=== PATIENT | female | born 1970 | race Caucasian/White ===

== ENCOUNTER 2018-03-20 18:18 | Inpatient (IN) | payer MEDICARE, OTHER ==
[~2018-03-20] VITALS: Ht 177.8 cm; Wt 56.7 kg
[2018-03-20] MEDS ORDERED: MAG HYDROX/AL HYDROX/SIMETH 30 ML UDC PO PRN (19:00)
[2018-03-20] MEDS ORDERED: MAGNESIUM HYDROXIDE 30 ML UDC PO PRN (19:00)
[2018-03-20 19:15] VITALS: BP 86/53
--- NOTE | 2018-03-20 19:15 | NUR ---
GPS ADMISSION NOTE, RECEIVED PATIENT FROM [facility] / [facility]. PATIENT ARRIVED ON THIS UNIT AT 1930 VIA STRETCHER WITH 2 EMT ESCORTS. PATIENT ADMITTED ON A 5150 HOLD FOR DTS. PER HOLD PATIENT WAS BROUGHT IN [facility] BECAUSE THIS PATIENT TOOK A OVERDOSE OF MEDICATION IN A SUICIDE ATTEMPT. PATIENT STATED, " I AM CONSTANTLY HEARING VOICES AND I CAN'T TAKE ANYMORE ". PATIENT ALSO STATES, " I WILL CONTINUE TO ATTEMPT TO KILL MYSELF IF THE VOICES DON'T LEAVE ME ALONE ". PATIENT UNABLE TO CONTRACT FOR SAFETY AT THIS TIME. THE 5150 WAS REVIEWED AND THE DOCUMENTATION IN THE 5150 HOLD APPEARS TO REFLECT THE PRESENTATION OF THE PATIENT. UPON FACE TO FACE ASSESSMENT PATIENT IS CURRENTLY LYING IN BED AWAKE, HAS A COMPLAINT OF RIGHT AND LEFT LEG PAIN AT 4 OUT 10 ON THE PAIN SCALE. PATIENT IS TAKING ORAL PAIN MEDICATION FOR THIS PAIN. PATIENT IS DISPLAYING NO S/S OF APPARENT DISTRESS. PATIENT BREATHING IS UNLABORED WITH EQUAL RISE AND FALL OF THE CHEST. PATIENT IS ALERT AND ORIENTATED X 3 ON ROOM AIR. PATIENT ASSISTED WITH TURING AND REPOSITIONING Q2HR AND PRN FOR COMFORT AND CIRCULATION. PATIENT HAS NO NEEDS AT THIS TIME. PATIENT IS NOTED TO BEING WITHDRAWN, DEPRESSED, DISHEVELED, DISORGANIZED, COOPERATIVE, AND NEEDS REDIRECTION. PATIENT IS UNDER THE PSYCHIATRIC CARE OF DR. MOE AND THE MEDICAL CARE OF DR RAMSEY. PATIENT BELONGINGS WERE INVENTORIED AND CHECKED FOR CONTRABAND. ALL CONTRABAND REMOVED AND STORED IN PATIENT HALLWAY LOCKER. PATIENT ADVANCED DIRECTIVES PREFERENCE, IMMUNIZATIONS QUESTIONER, NECESSARY PAPERWORK COMPLETED. PATIENT REFUSED SKIN ASSESSMENT AT THIS TIME BUT SAID SHE WOULD DO IT IN THE AM. PATIENT ORIENTATED TO ROOM, FLOOR, AND STAFF WITH ALL QUESTIONS ANSWERED. PATIENT EDUCATED ON THE USE OF THE CALL JENKINS. PATIENT BED SIDE RAILS ARE UP X 2 FOR SAFETY. PATIENT BED IS LOCKED, LOW AND I WILL CONTINUE TO MONITOR THIS PATIENT Q 15 MIN WITH THE HELP OF STAFF TO MAINTAIN SAFETY.
[2018-03-20] MEDS: ACETAMINOPHEN 325 MG TABLET PO PRN (19:38)
--- NOTE | 2018-03-20 19:38 | NUR ---
GS RN NOTE, PATIENT HAS A COMPLAINT OF PAIN AT 4 OUT 10 ON THE PAIN SCALE REQUESTING TYLENOL AT THIS TIME. PATIENT VITAL SIGNS ARE STABLE. GAVE TYLENOL 650 MG PO Q6HR PRN ORDERED. WILL REASSESS PAIN AND I WILL CONTINUE TO MONITOR THIS PATIENT.
[2018-03-20 20:01] VITALS: BP 83/53
[2018-03-20] MEDS ORDERED: PARO10TA86 PO (20:20)
[2018-03-20] MEDS ORDERED: CLIN300C11 PO (20:20)
[2018-03-20] MEDS ORDERED: OXYC-133 PO (20:22)
[2018-03-20] MEDS ORDERED: LEVO25TA7 PO (20:25)
[2018-03-20] MEDS ORDERED: AMIT25TA9 PO (20:26)
[2018-03-20] MEDS ORDERED: OLAN5TAB3 PO (20:27)
[2018-03-20] MEDS ORDERED: PANT40TA2 PO (20:28)
[2018-03-20] MEDS ORDERED: ALBU2.5V11 NEB (20:31)
[2018-03-20] MEDS ORDERED: BECL8.7A6 IH (20:34)
[2018-03-20] MEDS: TEMAZEPAM 7.5 MG CAPSULE PO PRN (22:51)
--- NOTE | 2018-03-20 22:51 | NUR ---
GPS RN NOTE, PATIENT HAS A COMPLAINT OF NOT BEING ABLE TO SLEEP AND IS REQUESTING A SLEEPING AID AT THIS TIME. PATIENT VITAL SIGNS ARE STABLE. GAVE RESTORIL 7.5 MG PO HS ORDERED. WILL REASSESS FOR INSOMNIA AND I WILL CONTINUE TO MONITOR THIS PATIENT.
[2018-03-21] MEDS ORDERED: ALBUTEROL FS 2.5 MG/3 ML VIAL.NEB NEB PRN (00:30)
[2018-03-21] MEDS ORDERED: SENN-167 PO (00:44)
[2018-03-21] MEDS ORDERED: ENOX40DI SUBCUT (00:44)
[2018-03-21] MEDS ORDERED: CALC1TAB90 PO (00:48)
[2018-03-21] MEDS ORDERED: CLON0.1T PO (00:50)
[2018-03-21] MEDS ORDERED: IPRA0.2S49 NEB (00:53)
[2018-03-21] MEDS: HYDROCODONE/APAP 10/325MG 1 EA TABLET PO PRN (05:07)
--- NOTE | 2018-03-21 05:07 | NUR ---
GPS RN NOTE, PATIENT HAS A COMPLAINT OF RIGHT AND LEFT ANKLE PAIN AT 8 OUT 10 ON THE PAIN SCALE. PATIENT VITAL SIGNS ARE STABLE. GAVE NORCO 10-325 PO Q6HR PRN ORDERED. WILL REASSESS PAIN AND I WILL CONTINUE TO MONITOR THIS PATIENT.
[2018-03-21 08:00] VITALS: BP 102/55
[2018-03-21] MEDS: PANTOPRAZOLE 40 MG TABLET.DR PO SCH (08:24)
[2018-03-21] MEDS: NICOTINE PATCH (14MG) 14 MG PATCH.TD24 TD SCH (08:24)
[2018-03-21] MEDS: LEVOTHYROXINE SODIUM 25 MCG TABLET PO SCH (08:24)
[2018-03-21 08:44] LABS: ALBUMIN 1.9 g/dL (3.4-5.0); BILIRUBIN,TOTAL 0.3 mg/dL (0.2-1.0); CREATININE 0.7 mg/dL (0.6-1.3); POTASSIUM 4.6 mmol/L (3.5-5.1); TOTAL PROTEIN, SERUM 6.9 g/dL (6.4-8.2)
[2018-03-21] MEDS ORDERED: QVAR PO PRN (09:00)
[2018-03-21] MEDS: ACETAMINOPHEN 325 MG TABLET PO PRN ×2 (11:15→15:36)
--- NOTE | 2018-03-21 11:15 | NUR ---
[id number]: GAVE TYLENOL 650 MG PO DUE TO BILATERAL LOWER EXTREMITIES UPON PT REQUEST AND WILL CONTINUE TO MONITOR FOR EFFECTIVENESS OF MEDICATION.
--- NOTE | 2018-03-21 11:16 | NUR ---
WOUND CARE CONSULT: PT PRESENTS WITH FIXATOR DEVICE TO RT ANKLE/LOWER LEG AND WOUNDS TO LEFT FOOT/ANKLE AREA, PRESENT ON ADMISSION. RECOMMENDATIONS MADE FOR SKIN PROTECTION AND WOUND CARE. DISCUSSED WITH NURSING STAFF. RECOMMEND SURGICAL CONSULT. PT INDEPENDENT WITH BED MOBILITY AND CONTINENT. WILL SEE PRN. BE IN AGREEMENT WITH PLAN OF CARE. Addendum: 03/21/18 at 1118 by MAX ALFORD WNDNU Amended: Links added.
[2018-03-21] MEDS ORDERED: ALBUTEROL FS 2.5 MG/0.5 ML VIAL.NEB NEB PRN (12:00)
[2018-03-21] MEDS: CLINDAMYCIN HCL 150 MG CAPSULE PO SCH ×2 (12:29→16:13)
[2018-03-21] MEDS: oxyCODONE/APAP (5/325 MG) 1 UDTAB TABLET PO SCH ×3 (12:29→21:11)
--- NOTE | 2018-03-21 14:43 | NUR ---
[id number]: PT IS CONCERN ABOUT HER BILATERAL LOWER EXTREMITIES, NOTIFIED DR. MOE ABOUT PT'S CONCERN. DR. MOE REQUESTED A ORTHO CONSULT. NOTIFIED DR. RAMSEY ABOUT DR. MOE REQUEST AND TO MEDICAL CLEAR PT STAY IN THE [facility] UNIT. PENDING RETURN PHONE CALL.
--- NOTE | 2018-03-21 15:36 | NUR ---
[id number]: GAVE TYLENOL 650 MG PO DUE TO BILATERAL LOWER EXTREMITIES UPON PT REQUEST AND WILL CONTINUE TO MONITOR FOR EFFECTIVENESS OF MEDICATION.
[2018-03-21 16:00] VITALS: BP 95/60
[2018-03-21 20:30] VITALS: BP 97/70
[2018-03-21] MEDS: OLANZAPINE 5 MG TABLET PO SCH (21:11)
[2018-03-21] MEDS ORDERED: AMITRIPTYLINE HCL 25 MG TABLET PO SCH (22:00)
[2018-03-21 23:00] VITALS: BP 110/68
[2018-03-21] MEDS: LORAZEPAM 0.5 MG TABLET PO PRN (23:12)
[2018-03-22] MEDS: oxyCODONE/APAP (5/325 MG) 1 UDTAB TABLET PO SCH ×3 (05:00→20:37)
--- NOTE | 2018-03-22 05:12 | NUR ---
GPS RN NOTES: PT.REFUSED PERCOCET5/325 AT 5 AM , ENCOURAGED FOR MEDS ,PT. STILL REFUSED ,WILL CONTINUE TO ENCOURAGE TO COMPLY WITH MD REGIMEN.
[2018-03-22] MEDS: ACETAMINOPHEN 325 MG TABLET PO PRN ×3 (05:45→20:08)
[2018-03-22 08:00] VITALS: BP 97/68
[2018-03-22] MEDS: LEVOTHYROXINE SODIUM 25 MCG TABLET PO SCH (08:07)
[2018-03-22] MEDS: NICOTINE PATCH (14MG) 14 MG PATCH.TD24 TD SCH ×2 (08:07→08:12)
[2018-03-22] MEDS: OLANZAPINE 5 MG TABLET PO SCH ×2 (08:07→21:06)
[2018-03-22] MEDS: CLINDAMYCIN HCL 150 MG CAPSULE PO SCH ×3 (08:07→16:38)
[2018-03-22] MEDS: ESCITALOPRAM OXALATE (10 MG) 10 MG TABLET PO SCH (08:07)
[2018-03-22] MEDS: PANTOPRAZOLE 40 MG TABLET.DR PO SCH (08:07)
[2018-03-22] MEDS: ENOXAPARIN SODIUM 40 MG/0.4 ML DISP.SYRIN SQ SCH (08:09)
--- NOTE | 2018-03-22 11:58 | NUR ---
GPS/RN-NOTES NOTED PATIENT CRYING STATED" I JUST WANT TO GO HOME". EXPLAIN PATIENT ON HOLD AND WAIT FOR THE PSYCHIATRIST. OFFERED ATIVAN BUT PATIENT REFUSED.
--- NOTE | 2018-03-22 13:22 | NUR ---
INITIAL DISCHARGE NOTE: Pt wants to be discharged back home to [address] [facility] [address]. However, pt stated that she does not know if she still has a home due to people telling her she no longer had a home. ALEIDA spoke with pts Christophe [phone] who stated pt does have a home and can return as soon as pt is ready for discharge. ALEIDA will help form a safe and proper discharge in collaboration with .
--- NOTE | 2018-03-22 13:55 | NUR ---
GPS/RN-NOTES PATIENT REFUSED PERCOCET AND ATB . EXPLAINED RISK AND BENEFITS BUT PATIENT GETS ANGRY AT THE HAND SHAKER. OFFERED X3.
--- NOTE | 2018-03-22 15:40 | NUR ---
SW attempted to contact pts Christophe [phone] to discuss discharge plan per MD. ALEIDA left voicemail for call back.
[2018-03-22 16:00] VITALS: BP 101/73
--- NOTE | 2018-03-22 16:57 | NUR ---
GPS/RN-NOTES NO URINE COLLECTED FOR TEST AT THIS TIME.EVERY TIME PATIENT URINATE SHE WILL ACCIDENTALLY HAD BM. WILL ENDORSED TO THE INCOMING NURSE FOR CONTINUITY OF CARE AND FOR URINE COLLECTION.
--- NOTE | 2018-03-22 17:22 | NUR ---
GPS/RN-NOTES PATIENT C/O LEFT LEG AND REQUESTING TYLENOL ONLY. TYLENOL 650MG P.O GIVEN PRN ORDER. WILL ENDORSE TO INCOMING CHARGE NURSE FOR CONTINUITY OF CARE. PATIENT ON 1:1 MONITORING FOR SAFETY.
--- NOTE | 2018-03-22 19:45 | NUR ---
RN NOTES GPS RN NOTE: RECEIVED PATIENT AWAKE AND LYING IN BED WITH 1:1 IN PT ROOM. ALERT AND ORIENTED X 3. COMPLAINED OF PAIN IN LEFT AND RIGHT LEG 6/10. REQUESTED TYLENOL PRN. PATIENT VERBALIZED SHE DID NOT WANT TO TAKE HER SCHEDULED PERCOCET BECAUSE DID NOT WANT TO BE "OUT OF IT". PATIENT DISPLAYING NO S/S OF APPARENT DISTRESS AT THIS TIME. PATIENT DENIES SUICIDE IDEATIONS AND HOMICIDAL IDEATIONS AT THIS TIME. PATIENT ENCOURAGED TO VERBALZE FEELINGS AND CONCERNS. WILL CONTINUE TO MONITOR AND MAINTAIN AND MAINTAIN SAFETY.
[2018-03-22 20:33] VITALS: BP 109/68
[2018-03-22] MEDS: AMITRIPTYLINE HCL 25 MG TABLET PO SCH (21:08)
--- NOTE | 2018-03-22 22:00 | NUR ---
RN NOTES. RECEIVED LETTER FROM PATIENT REGARDING PATIENT WANTED TO BE ALLOWED TO LEAVE SOON TO NOT MISS A FAMILY MEMBER GRADUATION. LETTER PUT ON CHART FOR PHYSICIAN TO REVIEW. DRESSING ON LEFT LEG CHANGED PER ORDER. NO SIGNS OF ANY NEW COMPLICATIONS. LEFT BOOT OF PER PATIENT REQUEST FOR SLEEP..NO SIGNS OF DISTRESS NOTED AT THIS TIME. PATIENT REMAINS WITH 1:1 SITTER.
[2018-03-22] MEDS: HYDROCODONE/APAP 10/325MG 1 EA TABLET PO PRN (23:30)
[2018-03-23] MEDS: TEMAZEPAM 7.5 MG CAPSULE PO PRN (00:26)
--- NOTE | 2018-03-23 04:15 | NUR ---
GPS NOTE: PATIENT WOKE ANGRY ABOUT BEING IN HOSPITAL. PATIENT REQUESTED AND WAS GIVEN NEW COPIES OF ADVISEMENTS AGAIN BECAUSE SHE HAD TORN UP THE FIRST SET GIVEN TO HER. PATIENT COMPLAINS OF HEARING FAMILY MEMBERS TALKING TO HER ABOUT THEIR PROBLEMS AND BEING UNABLE TO SLEEP AT THIS TIME. 1 : 1 TIME TO ALLOW PATIENT TO VENT EMOTIONS AND OFFER REALITY ORIENTATION, SUPPORT, AND ENCOURAGEMENT. DENIES SI/ HI. PATIENT WITH 1 : 1 SITTER FOR SAFETY AND WILL CONTINUE TO MONITOR.
[2018-03-23] MEDS: oxyCODONE/APAP (5/325 MG) 1 UDTAB TABLET PO SCH ×3 (05:00→20:33)
[2018-03-23] MEDS: ESCITALOPRAM OXALATE (10 MG) 10 MG TABLET PO SCH (08:15)
[2018-03-23] MEDS: CLINDAMYCIN HCL 150 MG CAPSULE PO SCH ×3 (08:15→17:24)
[2018-03-23] MEDS: PANTOPRAZOLE 40 MG TABLET.DR PO SCH (08:15)
[2018-03-23] MEDS: LEVOTHYROXINE SODIUM 25 MCG TABLET PO SCH (08:15)
[2018-03-23] MEDS: OLANZAPINE 5 MG TABLET PO SCH ×2 (08:15→20:35)
[2018-03-23] MEDS: ENOXAPARIN SODIUM 40 MG/0.4 ML DISP.SYRIN SQ SCH (08:18)
[2018-03-23] MEDS: NICOTINE PATCH (14MG) 14 MG PATCH.TD24 TD SCH (08:22)
[2018-03-23] MEDS: ACETAMINOPHEN 325 MG TABLET PO PRN ×2 (08:32→17:24)
[2018-03-23 08:40] VITALS: BP 99/65
--- NOTE | 2018-03-23 08:45 | NUR ---
GPS/RN-NOTES PATIENT C/O LEFT LEG AND REQUESTING FOR TYLENOL. TYLENOL 650MG P.O GIVEN PRN ORDER. WILL CONT. MONITORING .
[2018-03-23] MEDS: HYDROGEL DRESSING 90 GM TUBE TP SCH (11:06)
[2018-03-23 16:00] VITALS: BP 99/72
[2018-03-23] MEDS: LORAZEPAM 0.5 MG TABLET PO PRN (20:35)
[2018-03-23 20:40] VITALS: BP 106/63
[2018-03-23] MEDS: AMITRIPTYLINE HCL 25 MG TABLET PO SCH (21:04)
--- NOTE | 2018-03-23 23:05 | NUR ---
GPS RN NOTE: PT ALERT AND ORIENTED 2-3. MED COMPLIANT. REFUSING SCHEDULED PERCOCET PREFERS TYLENOL PRN FOR LEG PAIN. DRESSING TO LEFT ANKLE DRY AND INTACT. PT TOOK OFF BOOT TO TRY TO SLEEP. PT LABILE, ATTENTION SEEKING, IRRITABLE, CONFUSED AT SITUATION AT TIMES. DENIES PAIN, SI OR HI. C/O INSOMNIA BUT REFUSES PRN. DENIES SI OR HI. Q 15 CHECKS, REALITY ORIENTATION AND SUPPORT NEEDED. 1 :1 PRESENT. BED RAILS UP X 2 AND CALL JENKINS WITHIN REACH. WILL CONTINUE TO MONITOR FOR SAFETY AND BEHAVIOR.
[2018-03-24] MEDS: ACETAMINOPHEN 325 MG TABLET PO PRN ×2 (01:17→12:52)
--- NOTE | 2018-03-24 01:19 | NUR ---
GPS RN NOTE: PATIENT SLEPT FOR TWO HOURS WOKE C/O MILD PAIN LEGS AND REQUESTED TYLENOL PRN. PATIENT STATED SHE THINKS SHE WILL BE ABLE TO RETURN TO SLEEP WITHOUT A PRN FOR SLEEP AT THIS TIME.
[2018-03-24] MEDS: oxyCODONE/APAP (5/325 MG) 1 UDTAB TABLET PO SCH ×3 (05:00→21:00)
[2018-03-24 08:00] VITALS: BP 100/66
[2018-03-24] MEDS: NICOTINE PATCH (14MG) 14 MG PATCH.TD24 TD SCH (08:26)
[2018-03-24] MEDS: ENOXAPARIN SODIUM 40 MG/0.4 ML DISP.SYRIN SQ SCH (08:29)
[2018-03-24] MEDS: ESCITALOPRAM OXALATE (10 MG) 10 MG TABLET PO SCH (08:30)
[2018-03-24] MEDS: CLINDAMYCIN HCL 150 MG CAPSULE PO SCH ×3 (08:30→16:44)
[2018-03-24] MEDS: LEVOTHYROXINE SODIUM 25 MCG TABLET PO SCH (08:30)
[2018-03-24] MEDS: PANTOPRAZOLE 40 MG TABLET.DR PO SCH (08:30)
[2018-03-24] MEDS: HYDROGEL DRESSING 90 GM TUBE TP SCH (08:31)
[2018-03-24] MEDS: OLANZAPINE 5 MG TABLET PO SCH ×3 (08:44→21:44)
--- NOTE | 2018-03-24 08:44 | NUR ---
GPS/RN PT REFUSED TO TAKE SCHEDULED ZYPREXA PO. STATES THAT SHE NEED TO DISCUSS THIS MEDICATION WITH PSYCHIATRIST.
--- NOTE | 2018-03-24 15:24 | NUR ---
GPS/RN PT TOOK ZYPREXA 5MG PO FOLLOWING DISCUSSION WITH DR MOE.
[2018-03-24 16:01] VITALS: BP 96/58
--- NOTE | 2018-03-24 16:04 | NUR ---
ALEIDA contacted pts Christophe [phone] to discuss discharge plan per MD. ALEIDA informed pts that MD is recommending pt be discharged to a SNF instead of home due to pts previous 2 suicide attempts after being released from hospital. SW also informed pts that if pt is taken home, will have to sign a 24 hour care safety plan upon discharge. Pts understood and asked SW to give him time to think about options and decision.
[2018-03-24 20:15] VITALS: BP 115/71
--- NOTE | 2018-03-24 20:15 | NUR ---
GPS RN NOTE: RECEIVED PATIENT AWAKE AND IN BED WITH AT BEDSIDE VISITING, NO S/S OR COMPLAINTS OF PAIN AT THIS TIME. PATIENT DISPLAYING NO S/S OF APPARENT DISTRESS AT THIS TIME. PATIENT BREATHING IS UNLABORED WITH EQUAL RISE AND FALL OF THE CHEST. PATIENT ALERT AND ORIENTED X 3 WITH A SPO2 97%. PATIENT IS WITH 1:1 SITTER BECAUSE OF EXTERNAL FIXATION ON RIGHT LEG AND BOOT ON LEFT. PATIENT CAN AMBULATE TO BATHROOM WITH ASSISTANCE. PATIENT ENCOURAGED TO CONTINUE TO MOVE EXTREMITIES. PATIENT STATES WILL BE MED COMPLIANT, SHE IS LESS DISORGANIZED, LESS HYPERVERBAL, AND MORE COOPERATIVE THAN LAST NIGHT. NEEDS REORIENTATION. PATIENT DENIES SUICIDE IDEATIONS AND HOMICIDAL IDEATIONS AT THIS TIME. PATIENT ASSISTED WITH TURNING AND REPOSITIONING PRN FOR COMFORT AND CIRCULATION. PATIENT HAS NO NEEDS AT THIS TIME. PATIENT EDUCATED ON THE USE OF THE CALL JENKINS. PATIENT BED SIDE RAILS UP X2 FOR SAFETY, BED IS LOCKED AND LOW WILL CONTINUE TO MONITOR AND MAINTAIN AND MAINTAIN SAFETY.
[2018-03-24 20:17] VITALS: BP 93/62
[2018-03-24] MEDS: HYDROCODONE/APAP 10/325MG 1 EA TABLET PO PRN (21:45)
[2018-03-24] MEDS: AMITRIPTYLINE HCL 25 MG TABLET PO SCH (21:50)
[2018-03-24] MEDS: LORAZEPAM 0.5 MG TABLET PO PRN (22:08)
--- NOTE | 2018-03-24 22:10 | NUR ---
GPS RN NOTE: PT SPENT TIME IN CHAIR IN ROOM WITH 1:1 PLAYING Thermalin Diabetes AND INTERACTS APPROPRIATELY WHEN ENGAGED. MED COMPLIANT. PATIENT ENDORSED AUDITORY HALLUCINATIONS WITH VOICES THAT ARE CURSING WITHOUT COMMAND. SHE IS AWARE THEY ARE NOT REAL AND IS TRYING TO IGNORE THEM BUT HER ANXIETY WAS INCREASED AND SHE REQUESTED ATIVAN PRN BECAUSE SHE COULD NOT RELAX. ALSO C/O 5/10 ACHE PAIN IN BILATERAL FEET AND ANKLES AND REQUESTED AND RECEIVED NORCO PRN. DENIES SI/HI. WILL CONTINUE TO PROVIDE REALITY ORIENTATION AND SUPPORT NEEDED.
[2018-03-25] MEDS: oxyCODONE/APAP (5/325 MG) 1 UDTAB TABLET PO SCH ×3 (04:47→20:50)
[2018-03-25] MEDS: HYDROCODONE/APAP 10/325MG 1 EA TABLET PO PRN (05:30)
[2018-03-25 08:00] VITALS: BP 113/68
[2018-03-25] MEDS: CLINDAMYCIN HCL 150 MG CAPSULE PO SCH ×3 (08:36→17:07)
[2018-03-25] MEDS: ENOXAPARIN SODIUM 40 MG/0.4 ML DISP.SYRIN SQ SCH (08:37)
[2018-03-25] MEDS: LEVOTHYROXINE SODIUM 25 MCG TABLET PO SCH (08:37)
[2018-03-25] MEDS: PANTOPRAZOLE 40 MG TABLET.DR PO SCH (08:37)
[2018-03-25] MEDS: ESCITALOPRAM OXALATE (10 MG) 10 MG TABLET PO SCH (08:37)
[2018-03-25] MEDS: OLANZAPINE 5 MG TABLET PO SCH ×2 (08:37→20:51)
[2018-03-25] MEDS: NICOTINE PATCH (14MG) 14 MG PATCH.TD24 TD SCH (08:38)
[2018-03-25] MEDS: HYDROGEL DRESSING 90 GM TUBE TP SCH (08:38)
[2018-03-25] MEDS: CYANOCOBALAMIN 500 MCG TABLET PO SCH (12:54)
[2018-03-25] MEDS: ACETAMINOPHEN 325 MG TABLET PO PRN (15:25)
[2018-03-25 16:00] VITALS: BP 97/62
[2018-03-25 20:56] VITALS: BP 101/67
--- NOTE | 2018-03-25 21:00 | NUR ---
03/25/18 AT 2100, PATIENT REFUSED OXYCODONE 5/325 MG TAB PO, STATED, " NO"
[2018-03-25] MEDS: AMITRIPTYLINE HCL 25 MG TABLET PO SCH (21:39)
--- NOTE | 2018-03-25 23:29 | NUR ---
PATIENT STILL AWAKE, OFFERED HER SLEEPING PILL, SHE STATED," I'M OKAY FOR NOW, CAN I ASK FOR THE MEDICATION IF I NEED IT?". WILL CONTINUE TO MONITOR Q 15 MINS. TO MAINTAIN SAFETY.
[2018-03-26] MEDS: oxyCODONE/APAP (5/325 MG) 1 UDTAB TABLET PO SCH ×3 (05:00→21:00)
--- NOTE | 2018-03-26 05:20 | NUR ---
03/26/18 @ 0500, PATIENT REFUSED OXYCODONE 5/325 MG TAB PO. OFFERED 2X, STILL REFUSED.
[2018-03-26 08:00] VITALS: BP 100/65
[2018-03-26] MEDS: LEVOTHYROXINE SODIUM 25 MCG TABLET PO SCH (08:33)
[2018-03-26] MEDS: OLANZAPINE 5 MG TABLET PO SCH ×2 (08:34→21:36)
[2018-03-26] MEDS: ACETAMINOPHEN 325 MG TABLET PO PRN ×3 (08:34→23:14)
[2018-03-26] MEDS: CLINDAMYCIN HCL 150 MG CAPSULE PO SCH ×3 (08:35→16:45)
[2018-03-26] MEDS: PANTOPRAZOLE 40 MG TABLET.DR PO SCH (08:35)
[2018-03-26] MEDS: HYDROGEL DRESSING 90 GM TUBE TP SCH (08:35)
[2018-03-26] MEDS: ESCITALOPRAM OXALATE (10 MG) 10 MG TABLET PO SCH (08:35)
[2018-03-26] MEDS: CYANOCOBALAMIN 500 MCG TABLET PO SCH (08:35)
[2018-03-26] MEDS: NICOTINE PATCH (14MG) 14 MG PATCH.TD24 TD SCH (08:35)
[2018-03-26] MEDS: ENOXAPARIN SODIUM 40 MG/0.4 ML DISP.SYRIN SQ SCH (08:47)
[2018-03-26 16:21] VITALS: BP 102/62
[2018-03-26 20:09] VITALS: BP 99/62
[2018-03-26] MEDS: HYDROCODONE/APAP 10/325MG 1 EA TABLET PO PRN (21:37)
--- NOTE | 2018-03-26 21:37 | NUR ---
RN NOTES PT REFUSED FOR SCHEDULED PERCOCET DUE AT THIS TIME, INSTEAD PT WANTS TO TAKE NORCO FOR PAIN. NORCO 10/325 MG TAB GIVEN PO FOR 6/10 PAIN AND TOLERATED WELL. WILL CONTINUE TO MONITOR PT.
[2018-03-26] MEDS: AMITRIPTYLINE HCL 25 MG TABLET PO SCH (22:34)
[2018-03-26] MEDS ORDERED: PROMETHAZINE HCL 25 MG TABLET ONE (22:44)
--- NOTE | 2018-03-26 22:44 | NUR ---
RN NOTES PT VOMITED, SMALL IN AMOUNT OF PREVIOUSLY TAKEN FOOD. PER PT SHE'S TAKING PHENERGAN FOR NAUSEA AND VOMITING AT HOME. DR. LIMA WAS PAGED NOTIFIED WITH ORDER OF PHENERGAN 25 MG TAB PO Q8H PRN FOR N/V. NOTED AND CARRIED OUT.
[2018-03-26] MEDS: PROMETHAZINE HCL 25 MG TABLET PO PRN (23:02)
--- NOTE | 2018-03-26 23:02 | NUR ---
RN NOTES PHENERGAN 25 MG TAB GIVEN PO FOR NAUSEA AND VOMITING, TOLERATED WELL. WILL CONTINUE TO MONITOR PT.
[2018-03-27] MEDS: TEMAZEPAM 7.5 MG CAPSULE PO PRN (01:58)
[2018-03-27] MEDS: oxyCODONE/APAP (5/325 MG) 1 UDTAB TABLET PO SCH ×3 (05:00→21:00)
[2018-03-27 08:00] VITALS: BP 106/69
[2018-03-27] MEDS: CLINDAMYCIN HCL 150 MG CAPSULE PO SCH ×3 (08:24→17:06)
[2018-03-27] MEDS: OLANZAPINE 5 MG TABLET PO SCH ×2 (08:24→21:39)
[2018-03-27] MEDS: PANTOPRAZOLE 40 MG TABLET.DR PO SCH (08:25)
[2018-03-27] MEDS: ESCITALOPRAM OXALATE (10 MG) 10 MG TABLET PO SCH (08:25)
[2018-03-27] MEDS: NICOTINE PATCH (14MG) 14 MG PATCH.TD24 TD SCH (08:25)
[2018-03-27] MEDS: CYANOCOBALAMIN 500 MCG TABLET PO SCH (08:25)
[2018-03-27] MEDS: LEVOTHYROXINE SODIUM 25 MCG TABLET PO SCH (08:25)
[2018-03-27] MEDS: ENOXAPARIN SODIUM 40 MG/0.4 ML DISP.SYRIN SQ SCH (08:28)
[2018-03-27] MEDS: HYDROGEL DRESSING 90 GM TUBE TP SCH (12:21)
--- NOTE | 2018-03-27 15:11 | NUR ---
gps vinyl cutter: glass novelty maker f/u dr. roberson at bedside and tx done to left ankle/foot wound with order for p.t. eval for walker ambulation. order read back and carried out and acknowledged.
--- NOTE | 2018-03-27 15:23 | NUR ---
GPS LABORATORY TESTER: PSYCH F/U SEEN BY DR. MOE AT THIS TIME.
--- NOTE | 2018-03-27 15:48 | NUR ---
SW contacted pts Christophe [phone] to inform him that pt is ready for discharge on Tuesday03/29/18. SW asked if pt was connected with resources and he stated that pt is received IHSS and he cares for her at home. Pt encouraged to schedule a follow hemant with pts psychiatrist.
[2018-03-27 16:00] VITALS: BP 95/62
--- NOTE | 2018-03-27 19:30 | NUR ---
GPS RN NOTE, RECEIVED PATIENT AWAKE AND IN BED, NO S/S OR COMPLAINTS OF PAIN AT THIS TIME. PATIENT DISPLAYING NO S/S OF APPARENT DISTRESS AT THIS TIME. PATIENT BREATHING IS UNLABORED WITH EQUAL RISE AND FALL OF THE CHEST. PATIENT HAS A ONE TO ONE FOR FALL RISK. PATIENT ALERT AND ORIENTED X 3 WITH A SPO2 95%. PATIENT IS MED COMPLIANT, DISORGANIZED, DEPRESSED, PARANOID, ISOLATIVE, COOPERATIVE, NEEDS REORIENTATION. PATIENT DENIES SUICIDE IDEATIONS AND HOMICIDAL IDEATIONS AT THIS TIME. PATIENT ASSISTED WITH TURNING AND REPOSITIONING Q2HR AND PRN FOR COMFORT AND CIRCULATION. PATIENT HAS NO NEEDS AT THIS TIME. PATIENT EDUCATED ON THE USE OF THE CALL JENKINS. PATIENT BED SIDE RAILS UP X2 FOR SAFETY, BED IS LOCKED AND LOW WILL CONTINUE TO MONITOR AND MAINTAIN AND MAINTAIN SAFETY.
[2018-03-27 19:45] VITALS: BP 102/68
--- NOTE | 2018-03-27 21:31 | NUR ---
GPS RN NOTE, PATIENT REFUSED PERCOCET 2UD TABS PO Q8HR PRN. OFFERED THREE TIMES AND STILL PATIENT REFUSED STATING, " I JUST WANT TYLENOL ". EDUCATE THE PATIENT ON THE RISKS AND BENEFITS OF TAKING AND REFUSING AFOREMENTIONED MEDICATION. WILL CONTINUE TO MONITOR THIS PATIENT.
[2018-03-27] MEDS: AMITRIPTYLINE HCL 25 MG TABLET PO SCH (21:39)
[2018-03-27] MEDS: ACETAMINOPHEN 325 MG TABLET PO PRN (21:39)
--- NOTE | 2018-03-27 21:39 | NUR ---
GPS RN NOTE, GPS RN NOTE PATIENT HAS A COMPLAINT OF LEFT ANKLE PAIN AT 3 OUT 10 ON THE PAIN SCALE AND IS REQUESTING TYLENOL AT THIS TIME. PATIENT VITAL SIGNS ARE STABLE. GAVE TYLENOL 650 MG PO Q6HR PRN ORDERED. WILL CONTINUE TO MONITOR THIS PATIENT.
[2018-03-28] MEDS: PROMETHAZINE HCL 25 MG TABLET PO PRN (04:08)
--- NOTE | 2018-03-28 04:08 | NUR ---
GPS RN NOTE, PATIENT HAS A COMPLAINT OF FEELING NAUSEATED AND IS REQUESTING PHENERGAN AT THIS TIME. PATIENT VITAL SIGNS ARE STABLE. GAVE PHENERGAN 25 MG PO Q8HR PRN ORDERED. WILL REASSESS FOR NAUSEA AND I WILL CONTINUE TO MONITOR THIS PATIENT.
[2018-03-28] MEDS: oxyCODONE/APAP (5/325 MG) 1 UDTAB TABLET PO SCH ×3 (05:00→21:00)
[2018-03-28] MEDS: ACETAMINOPHEN 325 MG TABLET PO PRN (05:04)
[2018-03-28] MEDS: LEVOTHYROXINE SODIUM 25 MCG TABLET PO SCH (07:30)
[2018-03-28] MEDS: OLANZAPINE 5 MG TABLET PO SCH ×2 (09:11→21:49)
[2018-03-28] MEDS: CLINDAMYCIN HCL 150 MG CAPSULE PO SCH ×3 (09:11→17:39)
[2018-03-28 09:13] VITALS: BP 128/69
[2018-03-28] MEDS: NICOTINE PATCH (14MG) 14 MG PATCH.TD24 TD SCH (09:14)
[2018-03-28] MEDS: CYANOCOBALAMIN 500 MCG TABLET PO SCH (09:14)
[2018-03-28] MEDS: ENOXAPARIN SODIUM 40 MG/0.4 ML DISP.SYRIN SQ SCH (09:15)
[2018-03-28] MEDS: ESCITALOPRAM OXALATE (10 MG) 10 MG TABLET PO SCH (09:16)
[2018-03-28] MEDS: HYDROGEL DRESSING 90 GM TUBE TP SCH (09:16)
[2018-03-28] MEDS: PANTOPRAZOLE 40 MG TABLET.DR PO SCH (09:17)
--- NOTE | 2018-03-28 15:25 | NUR ---
ALEIDA contacted [facility] [phone] to confirm pts intake appointment with Ifeoma Zambrano. [facility] clerk informed ALEIDA that pt did not have an appointment pending and needed to be re-referred to [place] program by ALEIDA. ALEIDA faxed referral packet to [place] intake and assessment for ongoing mental health treatment at [phone].
[2018-03-28 16:00] VITALS: BP 108/64
[2018-03-28 20:46] VITALS: BP 108/57
--- NOTE | 2018-03-28 21:32 | NUR ---
PERCOCET 5/325 MG TAB REFUSED TONIGHT, DUE AT 2100.
--- NOTE | 2018-03-28 21:33 | NUR ---
PATIENT C/O PAIN ON HER LEFT LEG, OFFERED TYLENOL 650 MG TAB, PATIENT STATED THAT IT DOES NOT WORK FOR HER. PATIENT IS REQUESTING A DOCTOR TO SEE HER, CHARGE NURSE TO TALK TO HER. PAGED TRACK GRINDER OPERATOR FRANCINE, CHARGE NURSE MADE AWARE OF HER REQUESTS.
--- NOTE | 2018-03-28 21:37 | NUR ---
PAGED AND SPOKE TO CHECK SCALER FRANCINE, RELAYED PATIENT'S CONCERNS, RE: PAIN MEDS MOTRIN, AND PATIENT'S REQUEST TO SEE HER. FRANCINE STATED THAT, HE WILL COME WHENEVER HE IS AVAILABLE.
[2018-03-28] MEDS: AMITRIPTYLINE HCL 25 MG TABLET PO SCH (21:49)
[2018-03-28] MEDS: IBUPROFEN 200 MG TABLET PO PRN (23:49)
--- NOTE | 2018-03-28 23:49 | NUR ---
IBUPROFEN 200 MG TAB PO GIVEN FOR PAIN LEFT LOWER LEG
[2018-03-29] MEDS: PROMETHAZINE HCL 25 MG TABLET PO PRN (03:21)
--- NOTE | 2018-03-29 03:22 | NUR ---
C/O NAUSEA, PROMETHAZINE 25 MG TAB PO GIVEN.
[2018-03-29] MEDS: oxyCODONE/APAP (5/325 MG) 1 UDTAB TABLET PO SCH ×2 (05:00→12:47)
--- NOTE | 2018-03-29 05:21 | NUR ---
PATIENT REFUSED PERCOCET DUE AT 0500 TODAY
[2018-03-29 08:00] VITALS: BP 104/70
[2018-03-29] MEDS: CLINDAMYCIN HCL 150 MG CAPSULE PO SCH ×2 (08:46→12:44)
[2018-03-29] MEDS: CYANOCOBALAMIN 500 MCG TABLET PO SCH (08:46)
[2018-03-29] MEDS: ENOXAPARIN SODIUM 40 MG/0.4 ML DISP.SYRIN SQ SCH (08:46)
[2018-03-29] MEDS: PANTOPRAZOLE 40 MG TABLET.DR PO SCH (08:46)
[2018-03-29] MEDS: ESCITALOPRAM OXALATE (10 MG) 10 MG TABLET PO SCH (08:47)
[2018-03-29] MEDS: OLANZAPINE 5 MG TABLET PO SCH (08:47)
[2018-03-29] MEDS: LEVOTHYROXINE SODIUM 25 MCG TABLET PO SCH (08:47)
[2018-03-29] MEDS: NICOTINE PATCH (14MG) 14 MG PATCH.TD24 TD SCH (08:56)
[2018-03-29] MEDS: HYDROGEL DRESSING 90 GM TUBE TP SCH (08:57)
[2018-03-29] MEDS: IBUPROFEN 200 MG TABLET PO PRN (12:51)
--- NOTE | 2018-03-29 12:51 | NUR ---
NURSING NOTE PT REFUSED TO TAKE PERCOCET PER MD ORDER BUT ASKED FOR IBUPROFEN 200MG INSTEAD, IBUPROFEN 200 MG PO GIVEN FOR PAIN ON BILATERAL LOWER EXTREMITIES PER PT REQUEST
--- NOTE | 2018-03-29 13:50 | NUR ---
NURSING NOTE PT IS A&OX3, CALM, COOPERATIVE, MED COMPLIANT, DENIES SI/HI AT THE TIME OF D/C, VS STABLE, DRESSING CHANGE HAS BEEN DONE AND PICTURES WERE TAKEN AND PLACED IN THE CHART. PT DISCHARGED TODAY AT 1350, PT WAS PICKED UP BY FAMILY ( BEE AND SISTER) ([phone]) ON A PRIVATE VEHICLE TO HER HOME IN [place]. PT WAS GIVEN PRESCRIPTIONS AND EXPLAINED ALL DISCHARGE INSTRUCTIONS. PT AND FAMILY VERBALIZED UNDERSTANDING OF DC INSTRUCTIONS AND ALL PAPERWORK HAS BEEN SIGNED. ALL BELONGINGS WERE RETURNED TO PT AND PT SIGNED PAPERWORK. PT WAS ESCORTED OUT OF THE UNIT VIA WHEELCHAIR WITH ONE STAFF AND HER FAMILY TO PRIVATE VEHICLE.
--- NOTE | 2018-03-29 14:13 | NUR ---
DISCHARGE NOTE: Pt was discharged at 1:00pm home to [address] [facility] [address]. Pts Christophe [phone] picked pt up via private vehicle. Pt and were agreeable to discharge plan. Pts mood was anxious with congruent affect. Pt denied suicidal/homicidal ideations and denied visual/auditory hallucinations. SW referred pt to [facility] and confirmed with Nu officer of the day [phone] that pt had been accepted to their program and intake appointment would be scheduled and coordinated with pts . Pt has IHSS and will be cared for at home by her mother who is her IHSS caregiver. Pt will be seen by Ifeoma Zambrano (therapist) [facility] Address: [address] [address], [place] [address] and will follow up with Primary Care Nurse: Dr. Rohith Mcknight [address] [facility] [address] . The multidisciplinary exitcare form was done, printed, signed, and given to the patient.
[2018-03-30] MEDS ORDERED: ENOXAPARIN SODIUM 40 MG/0.4 ML DISP.SYRIN SQ SCH (09:00)
[2018-06-20] MEDS ORDERED: CYAN-6 IM (00:52)
[2018-06-20] MEDS ORDERED: HYDR25CA PO (00:52)
[2018-06-20] MEDS ORDERED: OMEP20TA20 PO (00:52)
== END 2018-03-29 14:00 | disposition home or self-care (01) | DRG 885 ==
LOC: GPS 18:18
PROVIDERS: ADMIT Psychiatry & Neurology Psychiatry; ATTEND Internal Medicine
DX: F33.2 Major depressive disorder, recurrent severe without psychotic features (principal); E43 Unspecified severe protein-calorie malnutrition; F23 Brief psychotic disorder; R45.851 Suicidal ideations; D68.59 Other primary thrombophilia; M87.9 Osteonecrosis, unspecified; Z68.1 Body mass index [BMI] 19.9 or less, adult; F41.9 Anxiety disorder, unspecified; G89.4 Chronic pain syndrome; E03.9 Hypothyroidism, unspecified; K21.9 Gastro-esophageal reflux disease without esophagitis; Z88.2 Allergy status to sulfonamides; Z98.84 Bariatric surgery status; J45.909 Unspecified asthma, uncomplicated; S91.002D Unspecified open wound, left ankle, subsequent encounter; X58.XXXD Exposure to other specified factors, subsequent encounter
CPT/HCPCS: 36415; 80053-TC; 80061-TC; 84703-TC; 87081-TC; A4606; A6248; A6402; J1650; Q0169; Z7610

== ENCOUNTER 2018-04-27 18:14 | Inpatient (IN) | payer MEDICARE, OTHER ==
[~2018-04-27] VITALS: Ht 177.8 cm; Wt 68.0 kg
[~2018-04-27 18:14] MED LIST: ALBU2.5V11 NEB; AMIT25TA9 PO; BECL8.7A6 IH; CALC1TAB90 PO; CLIN300C11 PO; CLON0.1T PO; ENOX40DI SUBCUT; IPRA0.2S49 NEB; LEVO25TA7 PO; OLAN5TAB3 PO; OXYC-133 PO; PANT40TA2 PO; PARO10TA86 PO; SENN-167 PO
[2018-04-27] MEDS ORDERED: TEMAZEPAM 7.5 MG CAPSULE PO PRN (21:30)
[2018-04-27] MEDS ORDERED: ACETAMINOPHEN 325 MG TABLET PO PRN (21:30)
[2018-04-27] MEDS ORDERED: MAGNESIUM HYDROXIDE 30 ML UDC PO PRN (21:30)
[2018-04-27] MEDS ORDERED: MAG HYDROX/AL HYDROX/SIMETH 30 ML UDC PO PRN (21:30)
--- NOTE | 2018-04-27 21:40 | NUR ---
ADMISSION NOTES: Admitted a 47 y/o female from [facility], Pt is on 5150 hold for DTS. Per hold patient stated that she was feeling SI and her plan was to overdose with medications. Pt denies SI at this time. Pt also stated that she has been having ongoing auditory hallucinations that are telling her "bad things about her family." Pt reported feeling tired of feeling bad and not being able to enjoy anything in life. Patient admitting dx. of depression and medical Dx. HTN, Osteonecrosis, COPD. Upon face to face evaluation, patient appeared alert and oriented x 3, anxious, disorganized. Skin/body assessment done. Pictures taken. Wound consult triggered. MRSA done. Policies and procedure explained. V/S WNL. Patient has no sob, no acute distress, breathing even and unlabored, denies pain and discomfort at this time, ambulatory with assistive device. Patient refused to sign paper works, belongings inspected for contraband items. Put it in safe cabinet. Notified Dr. Street and Dr. Wayne to reconcile medication. Kept clean, dry and comfortable. Will continue to monitor [id number] for safety and behavior.
[2018-04-27] MEDS ORDERED: IPRATROPIUM NEB FS 0.5 MG/2.5 ML AMPUL.NEB NEB PRN (23:00)
[2018-04-27] MEDS ORDERED: CLONIDINE HCL 0.1 MG TABLET PO PRN (23:00)
[2018-04-27] MEDS ORDERED: BECLOMETHASONE DIPROPIONATE 8.7 GM IH PRN (23:00)
[2018-04-28 01:47] VITALS: BP 108/62
[2018-04-28] MEDS: oxyCODONE/APAP (5/325 MG) 1 UDTAB TABLET PO PRN ×2 (06:59→15:45)
[2018-04-28 07:48] LABS: ALBUMIN 2.5 g/dL (3.4-5.0); BILIRUBIN,TOTAL 0.1 mg/dL (0.2-1.0); CALCIUM, SERUM 8.6 mg/dL (8.5-10.1); CHOLESTEROL 140 mg/dL (<200); CREATININE 0.7 mg/dL (0.6-1.3); HDL CHOLESTEROL 37 mg/dL (40-60); LDL 93 mg/dL (0-99); POTASSIUM 4.7 mmol/L (3.5-5.1); TOTAL PROTEIN, SERUM 7.1 g/dL (6.4-8.2); TRIGLYCERIDES 105 mg/dL (30-150)
[2018-04-28 07:52] LABS: BASOPHILS # (AUTO) 0.1 /CMM (0.0-0.2); BASOPHILS % (AUTO) 0.7 % (0.0-2.0); EOSINOPHILS % (AUTO) 1.6 % (0.0-6.0); HEMATOCRIT 30 % (33-45); LYMPHOCYTES # (AUTO) 1.7 /CMM (0.8-4.8); LYMPHOCYTES % (AUTO) 22.4 % (20.0-44.0); MEAN CORPUSCULAR HEMOGLOBIN 27 PG (26.0-33.0); MEAN CORPUSCULAR HGB CONC 33 g/dl (31.0-36.0); MEAN CORPUSCULAR VOLUME 82 fL (82-100); MONOCYTES # (AUTO) 0.4 /CMM (0.1-1.30); MONOCYTES % (AUTO) 5.3 % (2.0-12.0); NEUTROPHILS # (AUTO) 5.1 /CMM (1.8-8.9); PLATELET COUNT (AUTO) 310 /CMM (150-450); RDW COEFFICIENT OF VARIATION 18.3 (11.5-15.0); RED BLOOD CELL COUNT(AUTO) 3.68 MIL/uL (4.0-5.2); WHITE BLOOD COUNT (AUTO) 7.4 K/uL (4.3-11.0)
[2018-04-28 08:00] VITALS: BP 118/75
[2018-04-28] MEDS: SENNOSIDES 8.6 MG TABLET PO SCH ×2 (08:26→17:37)
[2018-04-28] MEDS: PANTOPRAZOLE 40 MG TABLET.DR PO SCH (08:26)
[2018-04-28] MEDS: LEVOTHYROXINE SODIUM 25 MCG TABLET PO SCH (08:26)
[2018-04-28] MEDS ORDERED: ALBUTEROL HALF STRENGTH 1.25 MG/3 ML VIAL.NEB NEB PRN (08:45)
[2018-04-28] MEDS ORDERED: CALCIUM CARB 600MG /VIT D 1 EACH TABLET PO PRN (09:00)
[2018-04-28] MEDS ORDERED: CALCIUM CARBONATE 500 MG TAB.CHEW PO PRN (09:00)
[2018-04-28 09:04] LABS: MAGNESIUM 1.8 mg/dL (1.8-2.4); PHOSPHORUS 3.9 mg/dL (2.5-4.9)
[2018-04-28 09:14] LABS: THYROID STIMULATING HORMONE 2.128 uIU/mL (0.358-3.74)
[2018-04-28] MEDS: OLANZAPINE 5 MG TABLET PO SCH ×2 (10:48→17:37)
[2018-04-28] MEDS: PAROXETINE HCL 10 MG TABLET PO SCH (10:48)
--- NOTE | 2018-04-28 11:48 | NUR ---
WOUND CARE CONSULT: PT PRESENTS WITH LEFT ANKLE WOUND WITH ADHERENT YELLOW NECROTIC TISSUE, PRESENT ON ADMISSION. PT ALSO HAS MULTIPLE SCARS TO LOWER LEGS AND FRAGILE AREA TO RT MEDIAL ANKLE/FOOT AREA, PRESENT ON ADMISSION. PT IS AMBULATORY WITH WALKER AND CONTINENT. PT FOLLOWED BY DR WOLF. ALL SKIN PROTECTION AND WOUND CARE RECOMMENDATIONS DISCUSSED WITH NURSING STAFF. DISCUSSED WOUND CARE WITH DR WOLF. WILL SEE PRN. BE IN AGREEMENT WITH PLAN OF CARE. Addendum: 04/28/18 at 1151 by MAX ALFORD WNDNU Amended: Links added.
--- NOTE | 2018-04-28 12:35 | NUR ---
GPS/RN-NOTES SEEN BY NEFTALI ALVAREZ AND MADE AWARE OF PATIENT LAB RESULTS WITH VERBAL ORDER TO ENCOURAGE PATIENT TO INCREASED P.O FLUID INTAKE.
[2018-04-28] MEDS: clonazePAM 0.5 MG TABLET PO PRN (12:59)
[2018-04-28] MEDS: NEOMY SULF/BACITRAC ZN/POLY 15 GM TUBE TP SCH (13:03)
--- NOTE | 2018-04-28 13:11 | NUR ---
GPS/RN-NOTES PATIENT LAYING IN HER BED C/O PAIN ON HER LOWER EXTREMITIES ,EXPLAINED THAT HER NEXT PAIN MEDICATIONS WAS NOT DUE UNTIL 2PM. PATIENT GETS ANGRY AND ARGUMENTATIVE , OFFERED KLONOPIN TO CALM HER DOWN AND AGREED. KLONOPIN 0.5MG P.O GIVEN PRN ORDER. WILL CONT. MONITORING FOR SAFETY AND BEHAVIOR.
--- NOTE | 2018-04-28 13:25 | NUR ---
GPS/RN-NOTES WOUND TREATMENT WAS DONE ORDERED.
--- NOTE | 2018-04-28 14:15 | NUR ---
GPS/RN-NOTES PATIENT LAYING IN HER BED CALM,NO ACUTE DISTRESS NOTED
--- NOTE | 2018-04-28 15:45 | NUR ---
GPS/RN-NOTES PATIENT C/O 8 RIGHT LEG AND REQUESTING FOR PAIN MEDICATION. PERCOCET 5/325MG 2 TABS.P.O GIVEN PRN ORDER. WILL CONT. MONITORING FOR SAFETY AND BEHAVIOR.
--- NOTE | 2018-04-28 15:52 | NUR ---
SW called the pt's , Christophe ([phone]), and discussed the initial discharge plan.
[2018-04-28 16:13] VITALS: BP 126/58
--- NOTE | 2018-04-28 16:22 | NUR ---
Initial Discharge Plan: Pt currently resides at [address] [place] [address] ([phone]) with her , Christophe Tamayo ([phone]). Per pt, she would like to return home. ALEIDA will work with the pt and the MD regarding appropriate discharge planning. SW will form a safe and proper discharge.
[2018-04-28 20:00] VITALS: BP 103/63
[2018-04-29] MEDS: oxyCODONE/APAP (5/325 MG) 1 UDTAB TABLET PO PRN ×3 (05:31→22:57)
--- NOTE | 2018-04-29 05:32 | NUR ---
C/O ACHY PAIN LEFT LOWER LEG, 8/10 ON PAIN SCALE, PERCOCET 5/325 MG TAB 2 PO GIVEN.
--- NOTE | 2018-04-29 06:00 | NUR ---
GPSRN AWAKE THIS TIME, NO NEEDS MADE. REMAINS COOPERATIVE, CALM.
[2018-04-29 08:00] VITALS: BP 100/59
[2018-04-29] MEDS: OLANZAPINE 5 MG TABLET PO SCH ×2 (08:41→18:08)
[2018-04-29] MEDS: PANTOPRAZOLE 40 MG TABLET.DR PO SCH (08:41)
[2018-04-29] MEDS: SENNOSIDES 8.6 MG TABLET PO SCH ×2 (08:41→18:08)
[2018-04-29] MEDS: LEVOTHYROXINE SODIUM 25 MCG TABLET PO SCH (08:41)
[2018-04-29] MEDS: PAROXETINE HCL 10 MG TABLET PO SCH (08:41)
[2018-04-29] MEDS: NEOMY SULF/BACITRAC ZN/POLY 15 GM TUBE TP SCH (08:42)
--- NOTE | 2018-04-29 12:30 | NUR ---
albaro concrete batcher in and made aware of pt. status.pt. asking him for muscle relaxant.
--- NOTE | 2018-04-29 12:30 | NUR ---
mrsa smear done of both nares and sent to lab.
--- NOTE | 2018-04-29 13:30 | NUR ---
dr. hoyt in and extended hold to [phone].
--- NOTE | 2018-04-29 13:32 | NUR ---
medicated with percocet for foot pain.
--- NOTE | 2018-04-29 13:35 | NUR ---
zyprexa dose increase-ok'd by dr. hoyt.
[2018-04-29 16:41] VITALS: BP 120/74
[2018-04-29] MEDS ORDERED: BACLOFEN (10 MG) 10 MG TABLET PO SCH (17:00)
[2018-04-29] MEDS: BACLOFEN (10 MG) 10 MG TABLET PO SCH (18:08)
--- NOTE | 2018-04-29 18:30 | NUR ---
14 day hold paper given to pt. while spouse present.pt. verbalized being upset.
--- NOTE | 2018-04-29 19:40 | NUR ---
GPSRN PATIENT IN THE ROOM RESTING QUIETLY. NO NEEDS MADE. SPOKE TO WANTED TO SPEAK TO PSYCHIATRIST IN AM. NOTE POSTED. SAFETY PRECAUTIONS EMPHASIZED WELL UNDERSTOOD. CLOSELY WATCHED.
[2018-04-29 20:00] VITALS: BP 116/65
--- NOTE | 2018-04-29 22:57 | NUR ---
GPSRN AWAKENED WITH BILATERAL ANKLE PAIN, 2 TABS PERCOCET ADMINISTERED. WENT BACK TO SLEEP.
[2018-04-30 08:00] VITALS: BP 118/66
[2018-04-30] MEDS: clonazePAM 0.5 MG TABLET PO PRN (08:48)
--- NOTE | 2018-04-30 08:48 | NUR ---
RN NOTES ADMINISTERED KLONOPIN 0.5 MG PO PRN FOR ANXIETY, PER PATIENT REQUEST, V/S TAKEN BP-118/ 78, P-88, CONTINUED MONITORING.
[2018-04-30] MEDS: OLANZAPINE 5 MG TABLET PO SCH ×2 (08:49→17:27)
[2018-04-30] MEDS: SENNOSIDES 8.6 MG TABLET PO SCH ×2 (08:49→17:28)
[2018-04-30] MEDS: PANTOPRAZOLE 40 MG TABLET.DR PO SCH (08:49)
[2018-04-30] MEDS: BACLOFEN (10 MG) 10 MG TABLET PO SCH ×3 (08:49→20:12)
[2018-04-30] MEDS: PAROXETINE HCL 10 MG TABLET PO SCH (08:50)
[2018-04-30] MEDS: NEOMY SULF/BACITRAC ZN/POLY 15 GM TUBE TP SCH (08:51)
[2018-04-30] MEDS: LEVOTHYROXINE SODIUM 25 MCG TABLET PO SCH (08:51)
[2018-04-30] MEDS: oxyCODONE/APAP (5/325 MG) 1 UDTAB TABLET PO PRN (10:15)
--- NOTE | 2018-04-30 10:15 | NUR ---
RN NOTES ADMINISTERED PERCOCET 2 TABS FOR RIGHT FOOT PAIN 03/26 PER PATIENT REQUEST, V/S TAKEN STABLE BP-118/66, P-89, ENCOURAGED TO INCREASE FLUID INTAKE.
[2018-04-30] MEDS ORDERED: IBUPROFEN 400 MG TABLET PO PRN (13:30)
[2018-04-30 16:00] VITALS: BP 101/72
[2018-04-30 20:10] VITALS: BP 123/76
[2018-05-01] MEDS: BACLOFEN (10 MG) 10 MG TABLET PO SCH ×3 (05:09→22:03)
[2018-05-01] MEDS: OLANZAPINE 5 MG TABLET PO SCH ×2 (08:46→17:45)
[2018-05-01] MEDS: PANTOPRAZOLE 40 MG TABLET.DR PO SCH (08:46)
[2018-05-01] MEDS: PAROXETINE HCL 10 MG TABLET PO SCH (08:46)
[2018-05-01] MEDS: SENNOSIDES 8.6 MG TABLET PO SCH ×2 (08:47→17:45)
[2018-05-01] MEDS: LEVOTHYROXINE SODIUM 25 MCG TABLET PO SCH (08:47)
[2018-05-01] MEDS: oxyCODONE/APAP (5/325 MG) 1 UDTAB TABLET PO PRN ×2 (08:48→18:04)
--- NOTE | 2018-05-01 08:48 | NUR ---
RN NOTES ADMINISTERED PERCOCET 5/325 MG PO PRN 2 TABS FOR RIGHT FOOT PAIN 03/26, PER PATIENT REQUEST, V/S TAKEN BP-108/59, P-102. ENCOURAGED TO INCREASE FLUID INTAKE.
[2018-05-01] MEDS: NEOMY SULF/BACITRAC ZN/POLY 15 GM TUBE TP SCH (08:52)
[2018-05-01 08:56] VITALS: BP 108/59
--- NOTE | 2018-05-01 10:59 | NUR ---
ALEIDA called the pt's , Christophe ([phone]), and discussed that there is no discharge date yet for the pt and that the psychiatrist will be informed to give the a call.
[2018-05-01 16:00] VITALS: BP 103/75
--- NOTE | 2018-05-01 18:04 | NUR ---
RN NOTES ADMINISTERED PERCOCET 5/325 TWO TABS PO PRN PER PATIENT REQUEST FOR RIGHT FOOT PAIN 04/25 , V/S TAKEN BP-103/73, P-93, CONTINUED MONITORING.
[2018-05-01 19:57] VITALS: BP 109/61
[2018-05-02] MEDS: BACLOFEN (10 MG) 10 MG TABLET PO SCH ×2 (05:18→13:18)
[2018-05-02] MEDS: oxyCODONE/APAP (5/325 MG) 1 UDTAB TABLET PO PRN ×2 (06:12→15:42)
[2018-05-02 08:00] VITALS: BP 100/54
[2018-05-02] MEDS: LEVOTHYROXINE SODIUM 25 MCG TABLET PO SCH (08:25)
[2018-05-02] MEDS: SENNOSIDES 8.6 MG TABLET PO SCH (08:25)
[2018-05-02] MEDS: PANTOPRAZOLE 40 MG TABLET.DR PO SCH (08:25)
[2018-05-02] MEDS: OLANZAPINE 5 MG TABLET PO SCH (08:25)
[2018-05-02] MEDS: NEOMY SULF/BACITRAC ZN/POLY 15 GM TUBE TP SCH (08:59)
[2018-05-02] MEDS ORDERED: PAROXETINE HCL 20 MG TABLET PO SCH (09:00)
--- NOTE | 2018-05-02 12:54 | NUR ---
SW called the pt's , Christophe ([phone]), and informed him that the SW cannot discharge a patient without a psychiatrist clearing the pt. SW informed the that he must talk to the psychiatrist and whenever he feels that the pt is ready, she will be discharged home.
--- NOTE | 2018-05-02 14:06 | NUR ---
ALEIAD called the pt's , Christophe ([phone]) and informed him that the pt will be discharged today.
--- NOTE | 2018-05-02 15:42 | NUR ---
RN NOTES ADMINISTERED PERCOCET 5/325 TWO TABS PO PRN PER PATIENT REQUEST FOR RIGHT FOOT PAIN 05/26. CONTINUED MONITORING.
--- NOTE | 2018-05-02 16:08 | NUR ---
Discharge Note: Pt was discharged home to [address] [place] [address]. She will continue to live with her , Christophe Tamayo ([phone]) who will be escorting her to her counseling appointments at [facility]. picked up the pt around 4pm on 05/02/18. Upon discharge, the pt appeared to be in a euthymic mood with a flat affect. Pt will be under the care of psychiatrist, Dr. Jones, located at [facility]: [address] [place] [address]; and her rotary driller prospecting, Dr. Cheung, located at [facility]: [address], [place] [address]; .
[2018-05-02 16:19] VITALS: BP 108/60
--- NOTE | 2018-05-02 16:30 | NUR ---
[id number]: PT IS 47 YEARS OLD FEMALE DISCHARGE TO HOME LOCATED AT [address] [place] [address] IN STABLE CONDITION. COMPLIANT WITH MEDICATIONS, COOPERATIVE WITH TREATMENT PLANS. PT DENIED SI/HI. BEHAVIOR IMPROVED, PSYCHIATRIC SI/HI. BEHAVIOR IMPROVED, PSYCHIATRIC TX PLANS MET, MEDICAL TX PLANS DEFERRED FOR CONTINUAL MONITORING. EDUCATED PT ABOUT AFTER CARE PLAN AND COPY PROVIDED. RETURNED PERSONAL BELONGINGS TO PT. MEDICATIONS RECONCILED BY DR. ALEGRIA AND DR. LIMA. PT IS MEDICAL CLEAR TO DISCHARGE BY DR. KENNEY LIMA. REPORT GIVEN TO BEE FOR CONTINUITY OF CARE. SKIN ASSESSMENT DONE. PT LEFT THE UNIT ACCOMPANIED BY VIA PRIVATE CAR.
== END 2018-05-02 16:30 | disposition home or self-care (01) | DRG 885 ==
LOC: GPS 20:57
PROVIDERS: ADMIT Internal Medicine; ATTEND Psychiatry & Neurology Psychiatry
DX: F32.3 Major depressive disorder, single episode, severe with psychotic features (principal); R45.851 Suicidal ideations; D68.59 Other primary thrombophilia; E44.0 Moderate protein-calorie malnutrition; F29 Unspecified psychosis not due to a substance or known physiological condition; F41.9 Anxiety disorder, unspecified; D63.8 Anemia in other chronic diseases classified elsewhere; R79.89 Other specified abnormal findings of blood chemistry; I10 Essential (primary) hypertension; J44.9 Chronic obstructive pulmonary disease, unspecified; E03.9 Hypothyroidism, unspecified; K27.9 Peptic ulcer, site unspecified, unspecified as acute or chronic, without hemorrhage or perforation; F17.210 Nicotine dependence, cigarettes, uncomplicated; E77.8 Other disorders of glycoprotein metabolism; G89.4 Chronic pain syndrome; Z68.21 Body mass index [BMI] 21.0-21.9, adult; Z88.2 Allergy status to sulfonamides; S91.002D Unspecified open wound, left ankle, subsequent encounter; Y83.8 Other surgical procedures as the cause of abnormal reaction of the patient, or of later complication, without mention of misadventure at the time of the procedure; Y82.9 Unspecified medical devices associated with adverse incidents; Z91.14 Patient's other noncompliance with medication regimen
CPT/HCPCS: 36415; 80053-TC; 80061-TC; 83735-TC; 84100-TC; 84443-TC; 84703-TC; 85025-TC; 87081-TC; A6402; A6403

== ENCOUNTER 2018-05-23 17:51 | Inpatient (IN) | payer MEDICARE, OTHER ==
[~2018-05-23] VITALS: Ht 160 cm; Wt 66.9 kg
[2018-05-23] MEDS ORDERED: CEPH-570 PO (19:50)
[2018-05-23] MEDS ORDERED: FERR325T23 PO ×2 (19:50)
[2018-05-23 20:15] VITALS: BP 153/69
[2018-05-23] MEDS ORDERED: IBUP-1957 PO (20:24)
[2018-05-23] MEDS ORDERED: MAGNESIUM HYDROXIDE 30 ML UDC PO PRN (20:30)
[2018-05-23] MEDS ORDERED: TEMAZEPAM 7.5 MG CAPSULE PO PRN (20:30)
[2018-05-23] MEDS ORDERED: ACETAMINOPHEN 325 MG TABLET PO PRN (20:30)
[2018-05-23] MEDS ORDERED: IBUPROFEN 800 MG TABLET PO PRN (21:00)
[2018-05-23] MEDS ORDERED: BECLOMETHASONE DIPROPIONATE 8.7 GM IH PRN (21:00)
[2018-05-23] MEDS ORDERED: IPRATROPIUM NEB FS 0.5 MG/2.5 ML AMPUL.NEB NEB PRN (21:00)
[2018-05-23] MEDS ORDERED: CLONIDINE HCL 0.1 MG TABLET PO PRN (21:00)
[2018-05-23 22:00] VITALS: BP 108/60
--- NOTE | 2018-05-23 23:04 | NUR ---
ADMISSION NOTES ADMITTED THIS 47 Y/O FEMALE PATIENT DIRECT ADMIT FROM [place] , PT IS ON 5150 HOLD , PER HOLD SI, OVERDOSE ON OF EXCEDRIN 28 TABS, BECAUSE I WAS TRYING TO KILL MYSELF, SHE REPORTS TO OVERWHELMING INCREASES AUDITORY HALLUCINATION AND STATED I FELT CRAZY . UPON FACE TO FACE ASSESSMENT PATIENT IS A&O X-3,DEPRESSED EASILY AGITATED DENIES SI HI AT THIS TIME,. PT.IS POOR HISTORIAN, POOR INSIGHT ,POOR JUDGEMENT ,V/S WNL, NO ACUTE DISTRESS NOTED, HX OF SCHIZOPHRENIA , BACK PAIN, ,HTN, GERD , MD AWARE AND NOTIFIED OF THE ADMISSION, SKIN ASSESSMENT DONE BUT PT. ALLOWED ONLY VISUAL SUPERFICIAL SKIN ASSESSMENT . PICTURE TAKEN AND PLACED IN CHART, ENCOURAGED PT. VERBALIZED ANY FEELING CONCERN TO STAFF, ORIENT TO UNIT POLICY, WILL CONTINUE TO MONITOR FOR Q15 SAFETY AND BEHAVIOR. Addendum: 05/23/18 at 2315 by LILLIAM KRISHNAMURTHY RN INCORRECT CHARTING
--- NOTE | 2018-05-23 23:15 | NUR ---
ADMISSION NOTES ADMITTED THIS 47 Y/O FEMALE PATIENT DIRECT ADMIT FROM [place] , PT IS ON 5150 HOLD , PER HOLD SI, OVERDOSE ON OF EXCEDRIN 28 TABS, BECAUSE I WAS TRYING TO KILL MYSELF, SHE REPORTS TO OVERWHELMING INCREASES AUDITORY HALLUCINATION AND STATED I FELT CRAZY . UPON FACE TO FACE ASSESSMENT PATIENT IS A&O X-3,DEPRESSED EASILY AGITATED DENIES SI HI AT THIS TIME,. PT.IS POOR HISTORIAN, POOR INSIGHT ,POOR JUDGEMENT ,V/S WNL, NO ACUTE DISTRESS NOTED, HX OF SCHIZOPHRENIA , AWARE AND NOTIFIED OF THE ADMISSION, SKIN ASSESSMENT DONE BUT PT. ALLOWED ONLY VISUAL SUPERFICIAL SKIN ASSESSMENT . PICTURE TAKEN AND PLACED IN CHART, ENCOURAGED PT. VERBALIZED ANY FEELING CONCERN TO STAFF, ORIENT TO UNIT POLICY, WILL CONTINUE TO MONITOR FOR Q15 SAFETY AND BEHAVIOR.
--- NOTE | 2018-05-23 23:48 | NUR ---
RN GPS NOTES DR. RASMEY HERE TO SEEN THE PT. NEW ORDERS RECEIVED NICOTIN PATCH 21MG DAILY , NEW ORDERS RECEIVED AND CARRIED OUT.
[2018-05-24] MEDS ORDERED: CALCIUM CARBONATE 500 MG TAB.CHEW PO PRN (01:29)
[2018-05-24] MEDS ORDERED: ALBUTEROL HALF STRENGTH 1.25 MG/3 ML VIAL.NEB NEB PRN (01:32)
--- NOTE | 2018-05-24 07:30 | NUR ---
RECEIVED PT. THIS AM ALERT AND ORIENTED X4.
[2018-05-24 07:39] LABS: CALCIUM, SERUM 8.4 mg/dL (8.5-10.1); CREATININE 0.6 mg/dL (0.6-1.3)
[2018-05-24 07:57] LABS: BASOPHILS % (AUTO) 0.7 % (0.0-2.0); EOSINOPHILS % (AUTO) 2.8 % (0.0-6.0); HEMATOCRIT 30 % (33-45); HEMOGLOBIN 9.7 g/dL (11.5-14.8); LYMPHOCYTES # (AUTO) 1.8 /CMM (0.8-4.8); LYMPHOCYTES % (AUTO) 28.4 % (20.0-44.0); MEAN CORPUSCULAR HEMOGLOBIN 25 PG (26.0-33.0); MEAN CORPUSCULAR HGB CONC 32 g/dl (31.0-36.0); MEAN CORPUSCULAR VOLUME 78 fL (82-100); MONOCYTES # (AUTO) 0.4 /CMM (0.1-1.30); MONOCYTES % (AUTO) 6.5 % (2.0-12.0); NEUTROPHILS % (AUTO) 61.6 % (43.0-81.0); PLATELET COUNT (AUTO) 389 /CMM (150-450); RDW COEFFICIENT OF VARIATION 17.4 (11.5-15.0); RED BLOOD CELL COUNT(AUTO) 3.92 MIL/uL (4.0-5.2); WHITE BLOOD COUNT (AUTO) 6.4 K/uL (4.3-11.0)
[2018-05-24 07:59] LABS: CHOLESTEROL 121 mg/dL (<200); HDL CHOLESTEROL 32 mg/dL (40-60); LDL 74 mg/dL (0-99); TRIGLYCERIDES 137 mg/dL (30-150)
[2018-05-24 08:00] VITALS: BP 102/59
[2018-05-24] MEDS ORDERED: FERROUS SULFATE (325 MG) 325 MG/TAB TABLET PO SCH (09:00)
[2018-05-24] MEDS ORDERED: MIRT15TA7 PO (09:13)
[2018-05-24] MEDS ORDERED: HYDR-3895 PO (09:13)
[2018-05-24] MEDS ORDERED: PROM25TA15 PO (09:13)
[2018-05-24] MEDS: ENOXAPARIN SODIUM 40 MG/0.4 ML DISP.SYRIN SQ SCH (09:42)
[2018-05-24] MEDS: SENNOSIDES 8.6 MG TABLET PO SCH ×2 (09:43→17:47)
[2018-05-24] MEDS: CEPHALEXIN MONOHYDRATE 500 MG CAPSULE PO SCH ×3 (09:44→17:47)
[2018-05-24] MEDS: FERROUS SULFATE (325 MG) 325 MG/TAB TABLET PO SCH (09:44)
[2018-05-24] MEDS: NICOTINE PATCH (21MG) 21 MG PATCH.TD24 TD SCH (09:44)
[2018-05-24] MEDS: LEVOTHYROXINE SODIUM 25 MCG TABLET PO SCH (09:44)
[2018-05-24] MEDS: oxyCODONE/APAP (5/325 MG) 1 UDTAB TABLET PO PRN ×2 (09:58→17:48)
--- NOTE | 2018-05-24 09:58 | NUR ---
MED WITH PERCOCET FOR LT. FOOT PAIN.
[2018-05-24] MEDS ORDERED: LIDOCAINE 1% INJ 50 ML MDV IJ STA (10:26)
--- NOTE | 2018-05-24 10:30 | NUR ---
DR. CROWDER IN AND CONSENT SIGNED FOR DEBRIDEMENT LT. FOOT. PT. TOLERATED FAIRLY WELL.
[2018-05-24] MEDS: IBUPROFEN 400 MG TABLET PO PRN ×2 (14:16→21:55)
--- NOTE | 2018-05-24 14:17 | NUR ---
MED X1 WITH MOTRIN 800 MG.
--- NOTE | 2018-05-24 15:00 | NUR ---
DRESSING CHANGED TO LT. FOOT WITH USE OF BETADINE AND TRIPLE ANTIBIOTIC PER ORDERS.
[2018-05-24] MEDS: NEOMY SULF/BACITRAC ZN/POLY 15 GM TUBE TP SCH (15:21)
--- NOTE | 2018-05-24 15:27 | NUR ---
Psychosocial Note: I, Martita Mathis VOCATIONAL TRAINING TEACHER, attest to the patients previous psychosocial information dated on 04/28/18. Update On Events leading to Admission and Discharge Plan: Pt has returned to the hospital within one month of her previous discharge date (05/02/18). Per hold, the pt is intentionally overdosing on her medications and is hearing voices. The current plan is to stabilize the patient on her medications and send her to a nursing facility upon discharge but this plan has to be discussed with her , Christophe Tamayo ([phone]). Per pt, she would like to return home and she stated that she does not want to be here again. The pt appeared to be in a dysphoric mood and presented as depressed. Pt appeared to be ambulatory, disheveled and appropriately dressed. Pt is currently denying any suicidal or homicidal ideation as well as any auditory hallucinations but did not say anything about visual hallucinations. SW will work with the pt and the MD regarding appropriate discharge planning. SW will form a safe and proper discharge.
--- NOTE | 2018-05-24 15:30 | NUR ---
PT. TEARY EYED REGARDING EXTENSION OF HOLD.
[2018-05-24 16:00] VITALS: BP 103/65
--- NOTE | 2018-05-24 16:20 | NUR ---
PT. TRANSFERRED VIA W/C TO ROOM 205-2.REPORT GIVEN TO KINA.ALL BELONGINGS SENT WITH PT.PT. STABLE AND VERY AGREEABLE TO TRANSFER.
[2018-05-24] MEDS ORDERED: AMITRIPTYLINE HCL 25 MG TABLET PO SCH (18:00)
--- NOTE | 2018-05-24 18:07 | NUR ---
RN NOTES PATIENT A/OX4, DENIES SI AT THIS TIME, NO DISTRESS NOTED, BREATHING EVEN AND UNLABORED, NO SOB NOTED, NEEDS ATTENDED AND MET, CALL LIGHT WITHIN REACH, WILL ENDORSE TO COMPUTER TESTER FOR VINNY.
[2018-05-24 20:00] VITALS: BP 106/55
[2018-05-24] MEDS: LORAZEPAM 0.5 MG TABLET PO PRN (20:08)
--- NOTE | 2018-05-24 20:08 | NUR ---
MS/RN PATIENT VERBALIZES FEELING ANXIOUS AND REQUESTS FOR HER ATIVAN. ATIVAN 0.5 MG PO WAS GIVEN ORDERED. WILL MONITOR.
--- NOTE | 2018-05-24 21:57 | NUR ---
MS/RN C/O PAIN IN LEFT FOOT, REQUESTED FOR MOTRIN, MOTRIN 800 MG PO WAS GIVEN ORDERED.
[2018-05-25] MEDS: MAG HYDROX/AL HYDROX/SIMETH 30 ML UDC PO PRN (01:13)
[2018-05-25] MEDS: oxyCODONE/APAP (5/325 MG) 1 UDTAB TABLET PO PRN ×3 (01:14→17:30)
--- NOTE | 2018-05-25 01:18 | NUR ---
MS/RN C/O STOMACH UPSET, MAALOX WAS GIVEN ORDERED. WILL MONITOR.
[2018-05-25] MEDS ORDERED: LINA72CA PO (02:43)
[2018-05-25] MEDS ORDERED: PREG50CA PO (02:43)
[2018-05-25] MEDS ORDERED: BACL10TA PO (02:43)
--- NOTE | 2018-05-25 06:10 | NUR ---
MS/RN PATIENT AWAKE, CALM AND COMFORTABLE, NO C/O PAIN, ALL NEEDS ATTENDED AT THIS TIME. NO BEHAVIOR PROBLEM NOTED THE WHOLE SHIFT. WILL CONTINUE TO MONITOR.
--- NOTE | 2018-05-25 08:21 | NUR ---
GPS OVERFLOW NOTES: MEDICATION ORDERS DR. VANEGAS NOTIFIED THAT PT IS COMPLAINING OF NAUSEA HOWEVER HAS NOT ANTINAUSEA MEDICATIONS. UPON REVIEWING HER HOME MEDICATION LIST, IT WAS NOTED THAT THE PT TAKES PHENERGAN 25MG QID. MADE GAVE TELEPHONE ORDER TO CONTINUE THIS MEDICATION
[2018-05-25] MEDS: ENOXAPARIN SODIUM 40 MG/0.4 ML DISP.SYRIN SQ SCH (08:58)
[2018-05-25] MEDS: OLANZAPINE 2.5 MG TABLET PO SCH ×2 (09:00→17:11)
[2018-05-25] MEDS: FERROUS SULFATE (325 MG) 325 MG/TAB TABLET PO SCH (09:00)
[2018-05-25] MEDS ORDERED: PROMETHAZINE HCL 25 MG TABLET PO SCH (09:00)
[2018-05-25] MEDS: LEVOTHYROXINE SODIUM 25 MCG TABLET PO SCH (09:00)
[2018-05-25] MEDS: NICOTINE PATCH (21MG) 21 MG PATCH.TD24 TD SCH (09:00)
[2018-05-25] MEDS: CEPHALEXIN MONOHYDRATE 500 MG CAPSULE PO SCH ×3 (09:00→17:11)
[2018-05-25] MEDS: PAROXETINE HCL 10 MG TABLET PO SCH (09:01)
[2018-05-25] MEDS: SENNOSIDES 8.6 MG TABLET PO SCH ×2 (09:02→17:12)
[2018-05-25] MEDS: NEOMY SULF/BACITRAC ZN/POLY 15 GM TUBE TP SCH (09:05)
--- NOTE | 2018-05-25 09:08 | NUR ---
SW spoke to pt's , Christophe Tamayo ([phone]), yesterday before leaving and discussed a jail facility as a potential option for the pt to be discharged to. Christophe Tamayo stated that he would talk to the pt about it when he comes to visit her later that night.
--- NOTE | 2018-05-25 09:10 | NUR ---
Christophe Tamayo ([phone]) called the SW and stated that both him and the pt discussed a fpc facility as a good option for the pt upon discharge and stated that he wants the SW to inform him of what facility accepts.
--- NOTE | 2018-05-25 09:44 | NUR ---
GPS OVERFLOW RN NOTES: MEDICATION ORDER DR. VANEGAS NOTIFIED THAT PT REQUESTS A LOWERED NICOTINE PATCH DOSE. PER MD ORDER, "CHANGE DOSE FROM 21MG DAILY TO 14MG DAILY".
--- NOTE | 2018-05-25 11:18 | NUR ---
Christophe Tamayo ([phone]) called the SW and asked for the names of the facilities that the SW will be sending referrals to for the pt.
--- NOTE | 2018-05-25 12:09 | NUR ---
WOUND CARE CONSULT WOUND CARE RECEIVED CONSULT FOR RIGHT LEG/LEFT FOOT WOUNDS. WOUND CARE WILL DEFER CONSULT AND ALL TREATMENT PLANS TO DPM DR WOLF AT THIS TIME. PATIENT WITH MARYA AT 19, WILL SEE PRN.
[2018-05-25] MEDS: BACLOFEN (10 MG) 10 MG TABLET PO SCH ×2 (12:23→17:12)
[2018-05-25] MEDS: PREGABALIN 25 MG CAPSULE PO SCH ×2 (12:23→17:11)
[2018-05-25] MEDS: PROMETHAZINE HCL 25 MG TABLET PO SCH ×2 (14:20→17:12)
[2018-05-25 16:00] VITALS: BP 104/63
[2018-05-25] MEDS: LORAZEPAM 0.5 MG TABLET PO PRN (17:11)
--- NOTE | 2018-05-25 18:29 | NUR ---
GPS OVERFLOW CLOSING NOTES PT REMAINS STABLE. ALL NEEDS ANTICIPATED FOR AND MET. ALL DUE MEDS GIVEN. SHE CONTINUES TO DENY ANY SI/HI AT THIS TIME. SAFETY MEASURES IN PLACE. WOUND AND SKIN CARE RENDERED. WILL ENDORSE TO NIGHTSHIFT NURSE FOR VINNY
--- NOTE | 2018-05-25 19:15 | NUR ---
RN NOTES RECEIVED PT IN BED, AWAKE, A/O X 4, WATCHING TV AT THIS TIME. AT BEDSIDE. VERBALLY RESPONSIVE. NO DISTRESS, NO SOB NOTED. RESPIRATION IS EVEN AND UNLABORED. NO C/O PAIN OR DISCOMFORT AT THIS TIME. PT ON 1:1 SITTER FOR SAFETY. ALL NEEDS ATTENDED AND MET. KEPT COMFORTABLE. SAFETY PRECAUTIONS OBSERVED. WILL CONT TO MONITOR.
[2018-05-25] MEDS: MIRTAZAPINE 15 MG TABLET PO SCH (21:23)
[2018-05-26] MEDS: PROMETHAZINE HCL 25 MG TABLET PO SCH ×4 (06:24→17:02)
--- NOTE | 2018-05-26 06:34 | NUR ---
RN NOTES PT IN BED, ASLEEP, APPEARS COMFORTABLE. AROUSES EASILY. VERBALLY RESPONSIVE. NO DISTRESS, NO SOB NOTED. RESPIRATION IS EVEN AND UNLABORED. NO C/O PAIN OR DISCOMFORT AT THIS TIME. PT ON 1:1 SITTER FOR SAFETY. ALL NEEDS ATTENDED AND MET. KEPT COMFORTABLE. SAFETY PRECAUTIONS OBSERVED. WILL ENDORSE TO NEXT SHIFT FOR VINNY.
[2018-05-26 08:00] VITALS: BP 109/63
[2018-05-26] MEDS: ENOXAPARIN SODIUM 40 MG/0.4 ML DISP.SYRIN SQ SCH (08:36)
[2018-05-26] MEDS: NICOTINE PATCH (14MG) 14 MG PATCH.TD24 TD SCH (08:38)
[2018-05-26] MEDS: FERROUS SULFATE (325 MG) 325 MG/TAB TABLET PO SCH (08:38)
[2018-05-26] MEDS: PAROXETINE HCL 10 MG TABLET PO SCH (08:38)
[2018-05-26] MEDS: PREGABALIN 25 MG CAPSULE PO SCH ×2 (08:38→17:02)
[2018-05-26] MEDS: CEPHALEXIN MONOHYDRATE 500 MG CAPSULE PO SCH ×3 (08:38→17:02)
[2018-05-26] MEDS: OLANZAPINE 2.5 MG TABLET PO SCH ×2 (08:39→17:03)
[2018-05-26] MEDS: SENNOSIDES 8.6 MG TABLET PO SCH ×2 (08:39→17:02)
[2018-05-26] MEDS: LEVOTHYROXINE SODIUM 25 MCG TABLET PO SCH (08:39)
[2018-05-26] MEDS: BACLOFEN (10 MG) 10 MG TABLET PO SCH ×3 (08:40→17:02)
[2018-05-26] MEDS: LORAZEPAM 0.5 MG TABLET PO PRN (08:40)
[2018-05-26] MEDS: PANTOPRAZOLE 40 MG TABLET.DR PO SCH (08:40)
[2018-05-26] MEDS: oxyCODONE/APAP (5/325 MG) 1 UDTAB TABLET PO PRN ×2 (08:51→17:04)
[2018-05-26] MEDS: NEOMY SULF/BACITRAC ZN/POLY 15 GM TUBE TP SCH (08:52)
--- NOTE | 2018-05-26 10:15 | NUR ---
Christophe Tamayo ([phone]) called the and left a voicemail for a call back.
--- NOTE | 2018-05-26 10:16 | NUR ---
SW called Christophe Tamayo ([phone]), pt's , and informed him that the pt was denied from three facilities due to her age and so therefore the SW is going to be sending her referral out to different facilities.
--- NOTE | 2018-05-26 11:49 | NUR ---
Christophe Tamayo ([phone]), pt's , called the SW and left a voicemail for a call back.
--- NOTE | 2018-05-26 12:03 | NUR ---
SW called Christophe Tamayo ([phone]), pt's , and he stated that his friends suggested a residential treatment center for his and informed the SW that he wants to send a referral over there. ALEIDA stated that she would.
--- NOTE | 2018-05-26 12:04 | NUR ---
ALEIDA faxed referrals to 3 alf facilities that denied the pt due to her age: [facility]
--- NOTE | 2018-05-26 12:05 | NUR ---
ALEIDA sent 3 referrals for the pt, two of which were to a prison facility and one was to a residential treatment center per the pt's 's request: [facility]
[2018-05-26] MEDS: IBUPROFEN 400 MG TABLET PO PRN (13:30)
[2018-05-26 16:00] VITALS: BP 99/63
--- NOTE | 2018-05-26 16:52 | NUR ---
GPS RN OVERFLOW NOTES: TRACY F/U PT AT BEDSIDE WITH PT'S HOME MEDICATION. UPON REVIEW OF PT'S PRESCRIPTION, IT WAS DISCOVERED THAT THE PT'S MEDICATIONS ARE OVER A YR OLD. PT MADE A TELEPHONE CALL TO OBTAIN A NEW PRESCRIPTION WHICH WILL NOT BE READY UNTIL TUESDAY. PHARMACIST KENNEY MADE AWARE. PT AGREES TO CONTINUE INPATIENT [place] UNTIL HER IS ABLE TO BRING HER NEW PRESCRIPTION
--- NOTE | 2018-05-26 19:30 | NUR ---
RN NOTES RECEIVED PT IN BED, AWAKE, A/O X 4, WATCHING TV AT THIS TIME. VERBALLY RESPONSIVE. NO DISTRESS, NO SOB NOTED. RESPIRATION IS EVEN AND UNLABORED. NO C/O PAIN OR DISCOMFORT AT THIS TIME. PT ON 1:1 SITTER FOR SAFETY. ALL NEEDS ATTENDED AND MET. KEPT COMFORTABLE. SAFETY PRECAUTIONS OBSERVED. WILL CONT TO MONITOR.
[2018-05-26 20:00] VITALS: BP 103/61
[2018-05-26 20:09] VITALS: BP 103/61
[2018-05-26] MEDS: MIRTAZAPINE 15 MG TABLET PO SCH (21:16)
[2018-05-26] MEDS: MICONAZOLE NITRATE VAG CREAM 45 GM TUBE VG SCH (21:16)
[2018-05-27] MEDS: PROMETHAZINE HCL 25 MG TABLET PO SCH ×4 (06:29→17:41)
[2018-05-27] MEDS: LEVOTHYROXINE SODIUM 25 MCG TABLET PO SCH (06:42)
--- NOTE | 2018-05-27 06:50 | NUR ---
RN NOTES PT IN BED, ASLEEP, APPEARS COMFORTABLE. AROUSES EASILY, A/O X 4, VERBALLY RESPONSIVE. NO DISTRESS, NO SOB NOTED. RESPIRATION IS EVEN AND UNLABORED. NO C/O PAIN OR DISCOMFORT AT THIS TIME. PT ON 1:1 SITTER FOR SAFETY. ALL DUE MEDS GIVEN. ALL NEEDS ATTENDED AND MET. KEPT COMFORTABLE. SAFETY PRECAUTIONS OBSERVED. WILL ENDORSE TO NEXT SHIFT FOR VINNY.
--- NOTE | 2018-05-27 07:36 | NUR ---
RN OPENING NOTES RECEIVED PT. PT IS STABLE, RESTING IN BED. SITTER IS BEDSIDE. PT IS ADM FOR GPS OVERFLOW. A/OX4, NO S/S OF RESP DISTRESS OR C/O SOB. NO C/O PAIN. PT IS S/P WOUND DEBRIDEMENT ON 05/24, WOUND TX TO BE PERFORMED IN AM. SAFETY MEASURES IN PLACE, CALL LIGHT WITHIN REACH. WILL CONTINUE TO MONITOR.
[2018-05-27 08:00] VITALS: BP 104/64
[2018-05-27 08:12] VITALS: BP 104/64
[2018-05-27] MEDS: PAROXETINE HCL 10 MG TABLET PO SCH (08:48)
[2018-05-27] MEDS: SENNOSIDES 8.6 MG TABLET PO SCH ×2 (08:49→17:32)
[2018-05-27] MEDS: FERROUS SULFATE (325 MG) 325 MG/TAB TABLET PO SCH (08:49)
[2018-05-27] MEDS: PANTOPRAZOLE 40 MG TABLET.DR PO SCH (08:49)
[2018-05-27] MEDS: BACLOFEN (10 MG) 10 MG TABLET PO SCH ×3 (08:49→17:32)
[2018-05-27] MEDS: CEPHALEXIN MONOHYDRATE 500 MG CAPSULE PO SCH ×3 (08:49→17:32)
[2018-05-27] MEDS: OLANZAPINE 2.5 MG TABLET PO SCH ×2 (08:49→17:32)
[2018-05-27] MEDS: NICOTINE PATCH (14MG) 14 MG PATCH.TD24 TD SCH (08:49)
[2018-05-27] MEDS: PREGABALIN 25 MG CAPSULE PO SCH ×2 (08:49→17:32)
[2018-05-27] MEDS: oxyCODONE/APAP (5/325 MG) 1 UDTAB TABLET PO PRN ×2 (09:04→17:41)
[2018-05-27] MEDS: ENOXAPARIN SODIUM 40 MG/0.4 ML DISP.SYRIN SQ SCH (09:05)
[2018-05-27] MEDS: NEOMY SULF/BACITRAC ZN/POLY 15 GM TUBE TP SCH (09:16)
[2018-05-27] MEDS: LORAZEPAM 0.5 MG TABLET PO PRN ×2 (14:30→21:05)
[2018-05-27 16:00] VITALS: BP_SYST 105; BP_SYST 106; BP_DIAS 65
--- NOTE | 2018-05-27 18:50 | NUR ---
RN CLOSING NOTES PT IN BED RESTING. NO S/S OF RESP DISTRESS OR SOB. NO C/O PAIN AT THIS TIME. PT HAS HAD C/O EXPERIENCING AN INTERMITTENT "DROP" IN RIGHT FOOT, ADVISED TO STAY NWB ON RIGHT LEG AND TO REQUEST ASSISTANCE WHEN AMBULATING. SAFETY MEASURES IN PLACE, CALL LIGHT WITHIN REACH. WILL ENDORSE TO HOUSEKEEPER HEAD FOR VINNY.
--- NOTE | 2018-05-27 19:30 | NUR ---
RN NOTES RECEIVED PT. AWAKE ON BED, A/OX3, ON HOLD, DENIES PAIN , NO SOB, SITTER AT BEDSIDE, CALL LIGHT WITHIN REACH, [id number], CONTINUE TO MONITOR
[2018-05-27] MEDS: MAG HYDROX/AL HYDROX/SIMETH 30 ML UDC PO PRN (19:49)
--- NOTE | 2018-05-27 19:51 | NUR ---
RN NOTES COMPLAINED OF INDIGESTION- MAALOX 3ML,PO GIVEN ORDERED. V/S STABLE
[2018-05-27 20:00] VITALS: BP 116/68
[2018-05-27] MEDS: MIRTAZAPINE 15 MG TABLET PO SCH (21:05)
--- NOTE | 2018-05-27 21:05 | NUR ---
RN NOTES PT. FEELING ANXIOUS AND ASKED FOR ATIVAN , ATIVAN 0.5MG PO GIVEN ORDERED, V/S STABLE
[2018-05-27] MEDS: MICONAZOLE NITRATE VAG CREAM 45 GM TUBE VG SCH (21:06)
[2018-05-28] MEDS: PROMETHAZINE HCL 25 MG TABLET PO SCH ×4 (06:21→17:19)
--- NOTE | 2018-05-28 06:46 | NUR ---
RN NOTES AWAKE,. SITTER AT BEDSIDE, MORNING CARE RENDERED, PT. NEEDS ATTENDED
[2018-05-28] MEDS: LORAZEPAM 0.5 MG TABLET PO PRN ×2 (08:43→20:13)
[2018-05-28] MEDS: FERROUS SULFATE (325 MG) 325 MG/TAB TABLET PO SCH (08:43)
[2018-05-28] MEDS: PREGABALIN 25 MG CAPSULE PO SCH ×2 (08:43→16:08)
[2018-05-28] MEDS: BACLOFEN (10 MG) 10 MG TABLET PO SCH ×3 (08:44→16:09)
[2018-05-28] MEDS: oxyCODONE/APAP (5/325 MG) 1 UDTAB TABLET PO PRN ×2 (08:44→16:49)
[2018-05-28] MEDS: CEPHALEXIN MONOHYDRATE 500 MG CAPSULE PO SCH ×3 (08:44→16:08)
[2018-05-28] MEDS: OLANZAPINE 2.5 MG TABLET PO SCH ×2 (08:44→16:08)
[2018-05-28] MEDS: PAROXETINE HCL 10 MG TABLET PO SCH (08:44)
[2018-05-28] MEDS: LEVOTHYROXINE SODIUM 25 MCG TABLET PO SCH (08:44)
[2018-05-28] MEDS: NICOTINE PATCH (14MG) 14 MG PATCH.TD24 TD SCH (08:44)
[2018-05-28] MEDS: PANTOPRAZOLE 40 MG TABLET.DR PO SCH (08:45)
[2018-05-28] MEDS: ENOXAPARIN SODIUM 40 MG/0.4 ML DISP.SYRIN SQ SCH (08:55)
[2018-05-28] MEDS: SENNOSIDES 8.6 MG TABLET PO SCH ×2 (09:00→16:09)
[2018-05-28] MEDS: NEOMY SULF/BACITRAC ZN/POLY 15 GM TUBE TP SCH (09:13)
[2018-05-28 11:06] VITALS: BP 113/71
[2018-05-28] MEDS: MAG HYDROX/AL HYDROX/SIMETH 30 ML UDC PO PRN ×2 (12:55→18:59)
[2018-05-28 16:25] VITALS: BP 101/76
--- NOTE | 2018-05-28 18:41 | NUR ---
RN CLOSING NOTES PT IN BED RESTING. NO S/S OF RESP DISTRESS OR SOB. NO C/O PAIN AT THIS TIME. PT HAS HAD C/O EXPERIENCING AN INTERMITTENT "DROP" IN RIGHT FOOT, ADVISED TO STAY NWB ON RIGHT LEG AND TO REQUEST ASSISTANCE WHEN AMBULATING. SAFETY MEASURES IN PLACE, CALL LIGHT WITHIN REACH. WILL ENDORSE TO CREDENTIALING COORDINATOR FOR VINNY.
--- NOTE | 2018-05-28 19:30 | NUR ---
RN NOTES RECEIVED PT. AWAKE ON BED, A/OX3, AMBULATORY, SITTER AT BEDSIDE, DENIES PAIN, NO SOB, CALL LIGHT WITHIN REACH, SIDERAILSUPX2, CONTINUE TO MONITOR
[2018-05-28 20:00] VITALS: BP 104/69
--- NOTE | 2018-05-28 20:15 | NUR ---
RN NOTES PT. STATED THAT SHE'S FEELING ANXIOUS- ATIVAN 0.5MG PO GIVEN ORDERED, V/S STABLE
[2018-05-28] MEDS: MIRTAZAPINE 15 MG TABLET PO SCH (21:32)
[2018-05-28] MEDS: MICONAZOLE NITRATE VAG CREAM 45 GM TUBE VG SCH (21:33)
[2018-05-29] MEDS: PROMETHAZINE HCL 25 MG TABLET PO SCH ×4 (05:43→17:22)
--- NOTE | 2018-05-29 06:28 | NUR ---
RN NOTES SLEEPING BUT AROUSABLE, DENIES PAIN, NO SOB, PT NEEDS ATTENDED
--- NOTE | 2018-05-29 07:42 | NUR ---
RN OPENING NOTES RECEIVED PT. PT IS STABLE, RESTING IN BED. SITTER IS BEDSIDE. PT IS ADM FOR GPS OVERFLOW. A/OX4, NO S/S OF RESP DISTRESS OR C/O SOB. NO C/O PAIN. PT IS S/P WOUND DEBRIDEMENT ON 05/24, WOUND TX TO BE PERFORMED IN AM. AWAITING PODIATRY F/U WITH . SAFETY MEASURES IN PLACE, CALL LIGHT WITHIN REACH. WILL CONTINUE TO MONITOR.
[2018-05-29 08:00] VITALS: BP_SYST 92; BP_SYST 97; BP_DIAS 50; BP_DIAS 56
[2018-05-29] MEDS: PREGABALIN 25 MG CAPSULE PO SCH ×2 (08:15→16:42)
[2018-05-29] MEDS: CEPHALEXIN MONOHYDRATE 500 MG CAPSULE PO SCH ×3 (08:15→16:42)
[2018-05-29] MEDS: LEVOTHYROXINE SODIUM 25 MCG TABLET PO SCH (08:19)
[2018-05-29] MEDS: BACLOFEN (10 MG) 10 MG TABLET PO SCH ×3 (08:19→16:42)
[2018-05-29] MEDS: OLANZAPINE 2.5 MG TABLET PO SCH ×2 (08:19→16:42)
[2018-05-29] MEDS: SENNOSIDES 8.6 MG TABLET PO SCH ×2 (08:19→16:42)
[2018-05-29] MEDS: FERROUS SULFATE (325 MG) 325 MG/TAB TABLET PO SCH (08:20)
[2018-05-29] MEDS: PANTOPRAZOLE 40 MG TABLET.DR PO SCH (08:20)
[2018-05-29] MEDS: NICOTINE PATCH (14MG) 14 MG PATCH.TD24 TD SCH (08:20)
[2018-05-29] MEDS: PAROXETINE HCL 10 MG TABLET PO SCH (08:20)
[2018-05-29] MEDS: oxyCODONE/APAP (5/325 MG) 1 UDTAB TABLET PO PRN ×2 (08:20→16:43)
[2018-05-29] MEDS: ENOXAPARIN SODIUM 40 MG/0.4 ML DISP.SYRIN SQ SCH (08:23)
[2018-05-29] MEDS: NEOMY SULF/BACITRAC ZN/POLY 15 GM TUBE TP SCH (08:42)
[2018-05-29] MEDS: LORAZEPAM 0.5 MG TABLET PO PRN ×2 (10:26→21:40)
--- NOTE | 2018-05-29 11:13 | NUR ---
Christophe Tamayo ([phone]), pt's , called the and informed her that even though she was accepted to both [facility] and [facility], he would prefer for her to go to [facility].
--- NOTE | 2018-05-29 11:14 | NUR ---
Radha ([phone]) from [facility] called the SW and informed her that the pt's medicare card would need to be faxed over so that they can verify the insurance on their end. The SW stated that she would try to attain that.
--- NOTE | 2018-05-29 11:15 | NUR ---
ALEIDA called Christophe Tamayo ([phone]), pt's , and informed him that [facility] needs the Medicare card for the pt.
[2018-05-29 16:00] VITALS: BP 123/69
[2018-05-29] MEDS: MAG HYDROX/AL HYDROX/SIMETH 30 ML UDC PO PRN (18:13)
--- NOTE | 2018-05-29 18:52 | NUR ---
RN CLOSING NOTES PT IN BED RESTING. NO S/S OF RESP DISTRESS OR SOB. NO C/O PAIN AT THIS TIME. PODIATRY F/U COMPLETED. WOUND CARE PERFORMED. SAFETY MEASURES IN PLACE, CALL LIGHT WITHIN REACH. WILL ENDORSE TO DRILL SETUP OPERATOR FOR VINNY.
--- NOTE | 2018-05-29 19:50 | NUR ---
GPS OVERFLOW RN NOTE: PATIENT RESTING IN BED, NO ACUTE DISTRESS NOTED. BREATHING EVEN AND UNLABORED, NO SOB NOTED. DRESSING TO BLE IN PLACE WITH BOOTS, NO BLEEDING NOTED. SITTER AT BEDSIDE. PATIENT CALM AND COOPERATIVE AT THIS TIME. BED LOCKED AND IN LOWEST POSITION, CALL LIGHT IN REACH. WILL CONTINUE TO MONITOR.
[2018-05-29 20:00] VITALS: BP 143/90
[2018-05-29] MEDS: MICONAZOLE NITRATE VAG CREAM 45 GM TUBE VG SCH (21:40)
[2018-05-29] MEDS: MIRTAZAPINE 15 MG TABLET PO SCH (21:40)
--- NOTE | 2018-05-29 21:45 | NUR ---
MS RN NOTE: PATIENT ANXIOUS AND REQUESTING FOR ANXIETY MEDICATION. ATIVAN 0.5MG ORAL GIVEN PER MD ORDER. WILL CONTINUE TO MONITOR.
--- NOTE | 2018-05-30 06:20 | NUR ---
GPS OVERFLOW RN NOTE: PATIENT RESTING IN BED, NO ACUTE DISTRESS NOTED. BREATHING EVEN AND UNLABORED, NO SOB NOTED. DRESSING TO BLE IN PLACE WITH BOOTS. SITTER AT BEDSIDE. PATIENT CALM AND COOPERATIVE AT THIS TIME. PATIENT SLEPT AT LEAST 8 HOURS. BED LOCKED AND IN LOWEST POSITION, CALL LIGHT IN REACH. WILL ENDORSE TO DAY NURSE TO CONTINUE WITH PLAN OF CARE.
[2018-05-30] MEDS: PROMETHAZINE HCL 25 MG TABLET PO SCH ×4 (06:43→17:26)
[2018-05-30] MEDS: oxyCODONE/APAP (5/325 MG) 1 UDTAB TABLET PO PRN ×2 (06:43→18:33)
[2018-05-30 08:00] VITALS: BP 109/65
[2018-05-30] MEDS: LORAZEPAM 0.5 MG TABLET PO PRN ×2 (09:05→17:32)
[2018-05-30] MEDS: PREGABALIN 25 MG CAPSULE PO SCH ×2 (09:05→17:27)
[2018-05-30] MEDS: MAG HYDROX/AL HYDROX/SIMETH 30 ML UDC PO PRN ×3 (09:05→21:54)
[2018-05-30] MEDS: NICOTINE PATCH (14MG) 14 MG PATCH.TD24 TD SCH (09:05)
[2018-05-30] MEDS: FERROUS SULFATE (325 MG) 325 MG/TAB TABLET PO SCH (09:06)
[2018-05-30] MEDS: SENNOSIDES 8.6 MG TABLET PO SCH ×2 (09:06→17:26)
[2018-05-30] MEDS: PANTOPRAZOLE 40 MG TABLET.DR PO SCH (09:06)
[2018-05-30] MEDS: OLANZAPINE 2.5 MG TABLET PO SCH ×2 (09:06→17:27)
[2018-05-30] MEDS: BACLOFEN (10 MG) 10 MG TABLET PO SCH ×3 (09:06→17:27)
[2018-05-30] MEDS: CEPHALEXIN MONOHYDRATE 500 MG CAPSULE PO SCH ×3 (09:06→17:27)
[2018-05-30] MEDS: LEVOTHYROXINE SODIUM 25 MCG TABLET PO SCH (09:07)
[2018-05-30] MEDS: PAROXETINE HCL 10 MG TABLET PO SCH (09:07)
[2018-05-30] MEDS: ENOXAPARIN SODIUM 40 MG/0.4 ML DISP.SYRIN SQ SCH (09:13)
[2018-05-30] MEDS: NEOMY SULF/BACITRAC ZN/POLY 15 GM TUBE TP SCH (10:25)
--- NOTE | 2018-05-30 14:31 | NUR ---
Radha ([phone]) from [facility] called the SW and confirmed that the pt can be transferred tomorrow to their facility.
--- NOTE | 2018-05-30 14:32 | NUR ---
ALEIDA called Christophe Tamayo ([phone]), pt's , and informed him that the pt was accepted to the facility and that she will be discharged tomorrow.
[2018-05-30] MEDS: IBUPROFEN 400 MG TABLET PO PRN (15:30)
[2018-05-30 16:00] VITALS: BP 110/66
--- NOTE | 2018-05-30 18:29 | NUR ---
GPS OVERFLOW RN NOTE: PATIENT RESTING IN BED, NO ACUTE DISTRESS NOTED. BREATHING EVEN AND UNLABORED, NO SOB NOTED. DRESSING TO BLE IN PLACE WITH BOOTS, NO BLEEDING NOTED. SITTER AT BEDSIDE. PATIENT CALM AND COOPERATIVE AT THIS TIME. BED LOCKED AND IN LOWEST POSITION, CALL LIGHT IN REACH. WILL CONTINUE TO MONITOR. Addendum: 05/30/18 at 1830 by SARA MUKHERJEE RN WILL ENDORSE TO NEXT SHIFT FOR CONTINUITY OF CARE
--- NOTE | 2018-05-30 19:40 | NUR ---
RN NOTES PT IN BED, AWAKE, A/O X 3, VERBALLY RESPONSIVE. NO DISTRESS, NOR SOB NOTED.DENIES ANY PAIN OR DISCOMFORT AT THIS TIME. DENIES ANY PAIN.PATIENT CALM AND COOPERATIVE AT THIS TIME. ON 1:1 SITTER FOR SAFETY. WILL CONT TO MONITOR.
[2018-05-30] MEDS: MIRTAZAPINE 15 MG TABLET PO SCH (21:54)
[2018-05-30] MEDS: MICONAZOLE NITRATE VAG CREAM 45 GM TUBE VG SCH (21:55)
[2018-05-31] MEDS: PROMETHAZINE HCL 25 MG TABLET PO SCH (06:18)
--- NOTE | 2018-05-31 07:39 | NUR ---
RN NOTES PT CALM, QUIET AND COOPERATIVE WITH CARE. PT FOR D/C TODAY, PICTURES OF WOUND DONE AND FILED IN THE CHART. NO SIGNIFICANT CHANGE IN CONDITION NOTED.
--- NOTE | 2018-05-31 07:52 | NUR ---
RN NOTES PATIENT A/OX4, BREATHING EVEN AND UNLABORED, DENIES PAIN OR DISCOMFORT AT THIS TIME. SITTER AT BEDSIDE, NEEDS ATTENDED, KEPT COMFORTABLE, WILL CONTINUE TO MONITOR.
[2018-05-31 08:00] VITALS: BP 97/50
[2018-05-31] MEDS: SENNOSIDES 8.6 MG TABLET PO SCH (08:33)
[2018-05-31] MEDS: PAROXETINE HCL 10 MG TABLET PO SCH (08:34)
[2018-05-31] MEDS: BACLOFEN (10 MG) 10 MG TABLET PO SCH (08:34)
[2018-05-31] MEDS: FERROUS SULFATE (325 MG) 325 MG/TAB TABLET PO SCH (08:34)
[2018-05-31] MEDS: CEPHALEXIN MONOHYDRATE 500 MG CAPSULE PO SCH (08:34)
[2018-05-31] MEDS: PANTOPRAZOLE 40 MG TABLET.DR PO SCH (08:34)
[2018-05-31] MEDS: PREGABALIN 25 MG CAPSULE PO SCH (08:34)
[2018-05-31] MEDS: OLANZAPINE 2.5 MG TABLET PO SCH (08:34)
[2018-05-31] MEDS: NICOTINE PATCH (14MG) 14 MG PATCH.TD24 TD SCH (08:35)
[2018-05-31] MEDS: LEVOTHYROXINE SODIUM 25 MCG TABLET PO SCH (08:35)
[2018-05-31] MEDS: oxyCODONE/APAP (5/325 MG) 1 UDTAB TABLET PO PRN (08:36)
[2018-05-31] MEDS: NEOMY SULF/BACITRAC ZN/POLY 15 GM TUBE TP SCH (08:38)
[2018-05-31] MEDS: ENOXAPARIN SODIUM 40 MG/0.4 ML DISP.SYRIN SQ SCH (08:40)
[2018-05-31] MEDS: MAG HYDROX/AL HYDROX/SIMETH 30 ML UDC PO PRN (08:41)
[2018-05-31] MEDS: LORAZEPAM 0.5 MG TABLET PO PRN (09:35)
--- NOTE | 2018-05-31 09:56 | NUR ---
Christophe Tamayo ([phone]), pt's , called the SW and verified that the pt is discharging today to [facility].
--- NOTE | 2018-05-31 11:00 | NUR ---
DISCHARGED PATIENT A/OX4, NO DISTRESS NOTED, DENIES SI/HI, CALM AND COOPERATIVE, PATIENT RECEIVED DISCHARGE INSTRUCTIONS AND VERBALIZED UNDERSTANDING, PAPERWORKS SIGNED. SKIN ASSESSMENT COMPLETED, PHOTO IN THE CHART TAKEN LAST NIGHT, NO CHANGE. PATIENT HAS NO IV ACCESS. BELONGINGS RECONCILED AND COMPLETE. REPORT GIVEN TO HARDIK AT [facility]. EMT CAME AND REPORT GIVEN, NEEDS ATTENDED, PATIENT LEFT THE FACILITY IN NO DISTRESS.
--- NOTE | 2018-05-31 11:04 | NUR ---
Discharge Note: Pt was discharged to [facility] ([facility]) [place] at [address] [place] [address]; ([phone]). Pt was transported via [facility] (Trip #) at 10:30AM. Pts , Christophe Tamayo ([phone]), was informed of this discharge and approved of it. Upon discharge, the pt appeared to be in a euthymic mood with an anxious and flat affect. Pt stated, I just want to leave as soon as possible. Pt denied suicidal and homicidal ideation as well as visual and auditory hallucinations at discharge. Pt will be under the care of psychiatrist, Dr. Dwyer, located at [address] [facility], [address] [place] [address]; and regional recruiter, Dr. Mullins, located at [address] [place] [address]; .
== END 2018-05-31 11:00 | DRG 876 ==
LOC: GPS 17:51 → GPSOV2 05-24 16:36
PROVIDERS: ADMIT Psychiatry & Neurology Psychiatry; ATTEND Internal Medicine
PROC: 0JBP0ZZ Excision of Left Lower Leg Subcutaneous Tissue and Fascia, Open Approach (ICD-10-PCS; principal; 2018-05-24)
DX: F33.3 Major depressive disorder, recurrent, severe with psychotic symptoms (principal); D68.59 Other primary thrombophilia; R45.851 Suicidal ideations; F41.9 Anxiety disorder, unspecified; G89.4 Chronic pain syndrome; I10 Essential (primary) hypertension; J44.9 Chronic obstructive pulmonary disease, unspecified; K21.9 Gastro-esophageal reflux disease without esophagitis; E03.9 Hypothyroidism, unspecified; F17.210 Nicotine dependence, cigarettes, uncomplicated; M19.90 Unspecified osteoarthritis, unspecified site; Z90.3 Acquired absence of stomach [part of]; Z87.11 Personal history of peptic ulcer disease; S91.002A Unspecified open wound, left ankle, initial encounter; X58.XXXA Exposure to other specified factors, initial encounter; Y93.9 Activity, unspecified; Y92.009 Unspecified place in unspecified non-institutional (private) residence as the place of occurrence of the external cause; S91.302A Unspecified open wound, left foot, initial encounter; Z73.6 Limitation of activities due to disability; I87.2 Venous insufficiency (chronic) (peripheral)
CPT/HCPCS: 36415; 80048-TC; 80061-TC; 84703-TC; 85025-TC; 87081-TC; A6402; A6403; J1650; J3490; Q0169; Z7610